=== PATIENT | male | born 1960 | race American Indian/Alaskan Native ===

== ENCOUNTER 2016-05-13 19:17 | Inpatient (IN) | payer MEDICARE ==
--- NOTE | 2016-05-13 20:12 | Emergency Department Report ---
Chief Complaint: Weakness Stated Complaint: GENERAL WEAKNESS Time Seen by Provider: 05/13/16 19:56 - HPI History of Present Illness: 55-year-old male presents today with weakness, diaphoresis, shaking, urinary symptoms, urinary incontinence. states patient received his Risperdal shot yesterday and the symptoms started post medication. Patient had similar symptoms post his last Risperdal shot and was seen here on April 26. Patient was diagnosed with a UTI and finished antibiotics with symptom resolution. Also complaining of lower abdominal pain. - ROS Review of Systems: Per HPI - Exam Vital Signs: Vital Signs 05/13/16 19:48 Temperature 97.5 F L Pulse Rate 130 H Respiratory 18 Rate Blood Pressure 131/97 O2 Sat by Pulse 100 Oximetry Physical Exam: General: 55-year-old male in no acute distress. CV: Tachycardic. Regular rhythm. Lungs: Clear to auscultation bilaterally. Abdomen: Tenderness to palpation in suprapubic region. No guarding or rebound tenderness. Negative for CVA tenderness bilaterally. MSE screening note: Focused history and physical exam performed. Due to findings the following was ordered: ED Disposition for MSE Condition: Stable
[2016-05-13 20:40] LABS: Hemoglobin 14.1 gm/dl (11.8-15.2); Mean Corpuscular HGB Conc 33 % (32-34); Mean Corpuscular Hemoglobin 29 pg (28-32); Mean Corpuscular Volume 89 fl (84-94); Platelet Count 319 K/mm3 (140-440); Red Blood Count 4.84 M/mm3 (3.65-5.03); Red Cell Distribution Width 14.1 % (13.2-15.2)
[2016-05-13 20:50] LABS: BUN/Creatinine Ratio 8.94; Calcium 9.7 mg/dL (8.4-10.2); Chloride 97.1 mmol/L (98-107); Potassium 5.2 mmol/L (3.6-5.0)
[2016-05-13 21:26] LABS: Basophils % (Manual) 0 % (0.0-1.8); Blastocytes % (Manual) 0 %; Eosinophils % (Manual) 0 % (0.0-4.3)
[2016-05-13 21:27] LABS: Anisocytosis 1+; Diff Status Complete; Poikilocytosis Few
[2016-05-13 21:42] LABS: Bacteria,Urine 3+ /HPF (Negative); Bilirubin,Urine NEG (Negative); Blood,Urine MOD (Negative); Ketones,Urine NEG (Negative); Leukocyte Esterase,Urine MOD (Negative); Mucus,Urine FEW /HPF; Nitrite,Urine NEG (Negative)
[2016-05-14] MEDS ORDERED: TYLENOL PO ONE (01:58)
[2016-05-14] MEDS ORDERED: ROCEPHIN/NS 1 GM/50 ML 50 ML IV ONE (04:03)
--- NOTE | 2016-05-14 04:06 | Emergency Department Report ---
ED General Adult HPI - General Chief complaint: Weakness Stated complaint: GENERAL WEAKNESS Time Seen by Provider: 05/13/16 19:56 Source: patient, family, RN notes reviewed, old records reviewed Mode of arrival: Wheelchair Limitations: Physical Limitation - History of Present Illness Initial comments: This is a 55-year-old male, previously unknown to me. Has a past medical history of psychiatric disease, and diabetes. On Wednesday, patient apparently received a shot of Risperdal. Since then he has not been feeling well. He complains of generalized weakness. He complains of low back pain and suprapubic abdominal pain. Symptoms are constant, and have no exacerbating or relieving factors. Apparently was recently diagnosed with a urinary tract infection. Patient denies headache, neck pain, chest pain, short of breath, and diarrhea. He reports urinary frequency and some diarrhea, and he reports global weakness. His reports nausea and vomiting. He denies incontinence. He denies saddle anesthesia. -: Gradual Severity scale (0 -10): 8 Consistency: intermittent Improves with: none Worsens with: none Associated Symptoms: confusion, diaphoresis, loss of appetite, nausea/vomiting, weakness - Related Data Home Medications Medication Instructions Recorded Confirmed Last Taken Aspirin [Adult Low Dose Aspirin EC] 81 mg PO DAILY 08/29/15 05/14/16 1 Day Ago 81 Clindamycin Phosphate [Cleocin T 60 ml TP DAILY 08/29/15 05/14/16 1 Day Ago 1% TOPICAL LOTION] 60 Cyclobenzaprine [Flexeril 10 MG 10 mg PO TID PRN 08/29/15 05/14/16 1 Day Ago TAB] 10 Metformin HCl [Glucophage] 500 mg PO BID 08/29/15 05/14/16 1 Day Ago 500 Mirtazapine [Remeron] 45 mg PO DAILY 08/29/15 05/14/16 1 Day Ago 45 Quetiapine Fumarate [QUEtiapine 300 mg PO QDAY 08/29/15 05/14/16 1 Day Ago Fumarate] 300 clonazePAM [Klonopin] 1 mg PO BID 08/29/15 05/14/16 1 Day Ago 1 risperiDONE [RisperDAL] 2 mg PO DAILY 08/29/15 05/14/16 1 Day Ago 4 Previous Rx's Medication Instructions Recorded Last Taken Type Doxycycline [Vibramycin CAP] 100 mg PO Q12HR #20 capsule 04/26/16 1 Day Ago Rx 100 Allergies Allergy/AdvReac Type Severity Reaction Status Date / Time bee venom (honey bee) Allergy Anaphylaxis Verified 08/28/15 16:23 lisinopril Allergy Anaphylaxis Verified 08/29/15 11:22 ED Review of Systems ROS: Stated complaint: GENERAL WEAKNESS Other details as noted in HPI Constitutional: diaphoresis, malaise, weakness Eyes: denies: eye discharge ENT: denies: epistaxis Respiratory: see HPI Cardiovascular: as per HPI Endocrine: see HPI Gastrointestinal: as per HPI Genitourinary: dysuria. denies: testicular pain Musculoskeletal: back pain Skin: denies: lesions Neurological: weakness Psychiatric: denies: anxiety ED Past Medical Hx - Past Medical History Hx Hypertension: Yes (2YRS) Hx Diabetes: Yes (2YRS) Hx COPD: Yes (2YRS) - Surgical History Hx Breast Surgery: Yes (RITA REMOVAL OF FLUID) - Medications Home Medications: Home Medications Medication Instructions Recorded Confirmed Last Taken Type Aspirin [Adult Low Dose Aspirin EC] 81 mg PO DAILY 08/29/15 05/14/16 1 Day Ago History 81 Clindamycin Phosphate [Cleocin T 60 ml TP DAILY 08/29/15 05/14/16 1 Day Ago History 1% TOPICAL LOTION] 60 Cyclobenzaprine [Flexeril 10 MG 10 mg PO TID PRN 08/29/15 05/14/16 1 Day Ago History TAB] 10 Metformin HCl [Glucophage] 500 mg PO BID 08/29/15 05/14/16 1 Day Ago History 500 Mirtazapine [Remeron] 45 mg PO DAILY 08/29/15 05/14/16 1 Day Ago History 45 Quetiapine Fumarate [QUEtiapine 300 mg PO QDAY 08/29/15 05/14/16 1 Day Ago History Fumarate] 300 clonazePAM [Klonopin] 1 mg PO BID 08/29/15 05/14/16 1 Day Ago History 1 risperiDONE [RisperDAL] 2 mg PO DAILY 08/29/15 05/14/16 1 Day Ago History 4 Doxycycline [Vibramycin CAP] 100 mg PO Q12HR #20 capsule 04/26/16 05/14/16 1 Day Ago Rx 100 ED Physical Exam - General Limitations: Physical Limitation General appearance: alert, in no apparent distress - Head Head exam: Present: atraumatic, normocephalic - Eye Eye exam: Present: normal appearance, EOMI. Absent: nystagmus - ENT ENT exam: Present: mucous membranes dry - Neck Neck exam: Present: normal inspection, full ROM. Absent: tenderness, meningismus - Respiratory Respiratory exam: Present: normal lung sounds bilaterally. Absent: respiratory distress, wheezes, rales, rhonchi, stridor, chest wall tenderness - Cardiovascular Cardiovascular Exam: Present: normal rhythm, tachycardia, normal heart sounds. Absent: bradycardia, irregular rhythm, systolic murmur, diastolic murmur, rubs, gallop - GI/Abdominal GI/Abdominal exam: Present: soft, normal bowel sounds. Absent: distended, tenderness, guarding, rebound, rigid, pulsatile mass - Rectal Rectal exam: Present: deferred - Extremities Exam Extremities exam: Present: normal inspection, full ROM, normal capillary refill , other (the compartments are soft. There is no clonus. Downgoing plantar reflexes.). Absent: tenderness, pedal edema, joint swelling, calf tenderness - Back Exam Back exam: Present: normal inspection, full ROM. Absent: tenderness, CVA tenderness (R), CVA tenderness (L), muscle spasm, paraspinal tenderness, vertebral tenderness - Neurological Exam Neurological exam: Present: alert, oriented X3, other (Extraocular movements intact. Tongue midline. No facial droop. Facial sensation intact to light touch in the V1, V2, V3 distribution bilaterally. 5 and 5 strength in 4 extremities.. Sensation is intact to light touch in 4 extremities.). Absent: motor sensory deficit - Psychiatric Psychiatric exam: Present: normal affect, normal mood - Skin Skin exam: Present: warm, dry, intact, normal color. Absent: rash ED Course Vital Signs 05/13/16 05/14/16 05/14/16 19:48 01:47 04:09 Temperature 97.5 F L 101.1 F H 99.3 F Pulse Rate 130 H 146 H 116 H Pulse Rate [ Left] Respiratory 18 26 H 18 Rate Blood Pressure 131/97 Blood Pressure [Left Arm] Blood Pressure 103/69 109/78 [Right] O2 Sat by Pulse 100 97 98 Oximetry 05/14/16 05/14/16 05/14/16 04:10 06:02 07:40 Temperature 100.9 F H Pulse Rate 112 H 123 H Pulse Rate [ Left] Respiratory 18 18 19 Rate Blood Pressure Blood Pressure [Left Arm] Blood Pressure 132/72 136/80 [Right] O2 Sat by Pulse 97 96 Oximetry 05/14/16 05/14/16 05/14/16 07:41 09:09 09:31 Temperature Pulse Rate 109 H Pulse Rate [ Left] Respiratory 19 17 21 Rate Blood Pressure 114/74 Blood Pressure [Left Arm] Blood Pressure [Right] O2 Sat by Pulse 99 98 Oximetry 05/14/16 05/14/16 05/14/16 10:00 10:15 10:31 Temperature Pulse Rate 107 H 104 H 107 H Pulse Rate [ Left] Respiratory 21 20 20 Rate Blood Pressure 116/73 116/73 116/73 Blood Pressure [Left Arm] Blood Pressure [Right] O2 Sat by Pulse 98 96 Oximetry 05/14/16 05/14/16 05/14/16 11:01 11:10 11:31 Temperature 97.7 F Pulse Rate 110 H 114 H Pulse Rate [ 101 H Left] Respiratory 12 20 26 H Rate Blood Pressure 132/75 132/75 Blood Pressure 142/91 [Left Arm] Blood Pressure [Right] O2 Sat by Pulse 97 94 98 Oximetry 05/14/16 05/14/16 05/14/16 12:00 12:45 12:59 Temperature Pulse Rate 116 H 112 H 120 H Pulse Rate [ Left] Respiratory 23 18 Rate Blood Pressure 129/83 132/75 132/75 Blood Pressure [Left Arm] Blood Pressure [Right] O2 Sat by Pulse 96 97 Oximetry 05/14/16 05/14/16 05/14/16 13:00 13:31 14:00 Temperature Pulse Rate 119 H 122 H 122 H Pulse Rate [ Left] Respiratory 25 H 25 H 15 Rate Blood Pressure 124/77 129/83 114/64 Blood Pressure [Left Arm] Blood Pressure [Right] O2 Sat by Pulse 97 98 98 Oximetry 05/14/16 05/14/16 05/14/16 14:31 15:00 15:03 Temperature Pulse Rate 113 H 114 H 114 H Pulse Rate [ Left] Respiratory 22 12 23 Rate Blood Pressure 114/64 127/77 127/77 Blood Pressure [Left Arm] Blood Pressure [Right] O2 Sat by Pulse 97 97 98 Oximetry 05/14/16 05/14/16 05/14/16 15:31 16:00 16:16 Temperature 102.3 F H Pulse Rate 109 H 114 H Pulse Rate [ Left] Respiratory 22 17 Rate Blood Pressure 127/77 131/80 Blood Pressure [Left Arm] Blood Pressure [Right] O2 Sat by Pulse 96 97 Oximetry - Reevaluation(s) Reevaluation #1: 05/14/16 05:04 Differential diagnosis: Pneumonia, pyelonephritis, prerenal azotemia, dehydration assessment and plan: 55-year-old male with tachycardia, fever, leukocytosis, generalized weakness, nausea and vomiting. Most likely pyelonephritis. Laboratory studies suggest vasomotor nephropathy. 2 L of IV fluids ordered. Antibiotics, blood cultures, urine cultures ordered. Chest x-ray negative. On my exam, the patient is alert and oriented 3, with a GCS of 15. There is no neck pain or neck stiffness. He is not altered on my exam. He appears to be appropriate. May have a component of fluctuating delirium as per history from his family, but he is not acutely altered at this point in time. Lower extremity sensation is intact to light touch and pinprick, proprioception is intact, with no midline lumbar spine tenderness. Therefore I think epidural abscess is unlikely. Case is discussed with the Hospital physician, Dr. Nick, who accepted the patient to his service. Reevaluation #2: 05/14/16 05:39 CAT scan demonstrates left-sided stone which is nonobstructing. This facility has urology systems protection technician as of 7:00 in the morning. I will defer to the inpatient team to contact urology. Flomax is ordered. ED Medical Decision Making - Lab Data Result diagrams: 05/14/16 08:04 05/13/16 20:19 Vital Signs 05/13/16 05/14/16 05/14/16 19:48 01:47 04:09 Temperature 97.5 F L 101.1 F H 99.3 F Pulse Rate 130 H 146 H 116 H Respiratory 18 26 H 18 Rate Blood Pressure 131/97 Blood Pressure 103/69 109/78 [Right] O2 Sat by Pulse 100 97 98 Oximetry 05/14/16 04:10 Temperature Pulse Rate Respiratory 18 Rate Blood Pressure Blood Pressure [Right] O2 Sat by Pulse Oximetry Labs 05/13/16 05/13/16 05/13/16 20:19 20:19 20:19 WBC 21.0 H RBC 4.84 Hgb 14.1 Hct 43.0 MCV 89 MCH 29 MCHC 33 RDW 14.1 Plt Count 319 Add Manual Diff Complete Total Counted 100 Seg Neuts % (Manual) 86.0 H Band Neutrophils % 0 Lymphocytes % (Manual) 9.0 L Reactive Lymphs % (Man) 0 Monocytes % (Manual) 5.0 Eosinophils % (Manual) 0 Basophils % (Manual) 0 Metamyelocytes % 0 Myelocytes % 0 Promyelocytes % 0 Blast Cells % 0 Nucleated RBC % Not Reportable Seg Neutrophils # Man 18.1 H Band Neutrophils # 0.0 Lymphocytes # (Manual) 1.9 Abs React Lymphs (Man) 0.0 Monocytes # (Manual) 1.1 H Eosinophils # (Manual) 0.0 Basophils # (Manual) 0.0 Metamyelocytes # 0.0 Myelocytes # 0.0 Promyelocytes # 0.0 Blast Cells # 0.0 WBC Morphology Not Reportable Hypersegmented Neuts Not Reportable Hyposegmented Neuts Not Reportable Hypogranular Neuts Not Reportable Smudge Cells Not Reportable Toxic Granulation Not Reportable Toxic Vacuolation Not Reportable Dohle Bodies Not Reportable Pelger-Huet Anomaly Not Reportable Stacia Rods Not Reportable Platelet Estimate Appears normal Clumped Platelets Not Reportable Plt Clumps, EDTA Not Reportable Large Platelets Not Reportable Giant Platelets Not Reportable Platelet Satelliting Not Reportable Plt Morphology Comment Not Reportable RBC Morphology Not Reportable Dimorphic RBCs Not Reportable Polychromasia Not Reportable Hypochromasia Not Reportable Poikilocytosis Few Anisocytosis 1+ Microcytosis Not Reportable Macrocytosis Not Reportable Spherocytes Not Reportable Pappenheimer Bodies Not Reportable Sickle Cells Not Reportable Target Cells Not Reportable Tear Drop Cells Not Reportable Ovalocytes Not Reportable Helmet Cells Not Reportable [place] Bodies Not Reportable [place] Rings Not Reportable [place] Cells Not Reportable Bite Cells Not Reportable Crenated Cell Not Reportable Elliptocytes Not Reportable Acanthocytes (Spur) Not Reportable Rouleaux Not Reportable Hemoglobin C Crystals Not Reportable Schistocytes Not Reportable Malaria parasites Not Reportable Doe Bodies Not Reportable Hem Pathologist Commnt No Sodium 138 Potassium 5.2 H Chloride 97.1 L Carbon Dioxide 22 Anion Gap 24 BUN 17 Creatinine 1.9 H Estimated GFR 45 BUN/Creatinine Ratio 8.94 Glucose 155 H Lactic Acid Calcium 9.7 Magnesium Total Creatine Kinase Troponin T Amylase 27 Lipase 9 L Urine Color Urine Turbidity Urine pH Ur Specific [place] Urine Protein Urine Glucose (UA) Urine Ketones Urine Blood Urine Nitrite Urine Bilirubin Urine Urobilinogen Ur Leukocyte Esterase Urine WBC (Auto) Urine RBC (Auto) U Epithel Cells (Auto) Urine Bacteria (Auto) Hyaline Casts Urine Mucus 05/13/16 05/14/16 05/14/16 21:20 04:23 04:23 WBC RBC Hgb Hct MCV MCH MCHC RDW Plt Count Add Manual Diff Total Counted Seg Neuts % (Manual) Band Neutrophils % Lymphocytes % (Manual) Reactive Lymphs % (Man) Monocytes % (Manual) Eosinophils % (Manual) Basophils % (Manual) Metamyelocytes % Myelocytes % Promyelocytes % Blast Cells % Nucleated RBC % Seg Neutrophils # Man Band Neutrophils # Lymphocytes # (Manual) Abs React Lymphs (Man) Monocytes # (Manual) Eosinophils # (Manual) Basophils # (Manual) Metamyelocytes # Myelocytes # Promyelocytes # Blast Cells # WBC Morphology Hypersegmented Neuts Hyposegmented Neuts Hypogranular Neuts Smudge Cells Toxic Granulation Toxic Vacuolation Dohle Bodies Pelger-Huet Anomaly Stacia Rods Platelet Estimate Clumped Platelets Plt Clumps, EDTA Large Platelets Giant Platelets Platelet Satelliting Plt Morphology Comment RBC Morphology Dimorphic RBCs Polychromasia Hypochromasia Poikilocytosis Anisocytosis Microcytosis Macrocytosis Spherocytes Pappenheimer Bodies Sickle Cells Target Cells Tear Drop Cells Ovalocytes Helmet Cells [place] Bodies [place] Cells Bite Cells Crenated Cell Elliptocytes Acanthocytes (Spur) Rouleaux Hemoglobin C Crystals Schistocytes Malaria parasites Doe Bodies Hem Pathologist Commnt Sodium Potassium Chloride Carbon Dioxide Anion Gap BUN Creatinine Estimated GFR BUN/Creatinine Ratio Glucose Lactic Acid Calcium Magnesium Total Creatine Kinase 78 Troponin T < 0.010 Amylase Lipase Urine Color Lina Urine Turbidity Slightly-cloudy Urine pH 5.0 Ur Specific [place] 1.023 Urine Protein 100 mg/dl Urine Glucose (UA) Neg Urine Ketones Neg Urine Blood Mod Urine Nitrite Neg Urine Bilirubin Neg Urine Urobilinogen 4.0 Ur Leukocyte Esterase Mod Urine WBC (Auto) 32.0 H Urine RBC (Auto) 8.0 U Epithel Cells (Auto) < 1.0 Urine Bacteria (Auto) 3+ Hyaline Casts 1 Urine Mucus Few 05/14/16 05/14/16 04:23 04:23 WBC RBC Hgb Hct MCV MCH MCHC RDW Plt Count Add Manual Diff Total Counted Seg Neuts % (Manual) Band Neutrophils % Lymphocytes % (Manual) Reactive Lymphs % (Man) Monocytes % (Manual) Eosinophils % (Manual) Basophils % (Manual) Metamyelocytes % Myelocytes % Promyelocytes % Blast Cells % Nucleated RBC % Seg Neutrophils # Man Band Neutrophils # Lymphocytes # (Manual) Abs React Lymphs (Man) Monocytes # (Manual) Eosinophils # (Manual) Basophils # (Manual) Metamyelocytes # Myelocytes # Promyelocytes # Blast Cells # WBC Morphology Hypersegmented Neuts Hyposegmented Neuts Hypogranular Neuts Smudge Cells Toxic Granulation Toxic Vacuolation Dohle Bodies Pelger-Huet Anomaly Stacia Rods Platelet Estimate Clumped Platelets Plt Clumps, EDTA Large Platelets Giant Platelets Platelet Satelliting Plt Morphology Comment RBC Morphology Dimorphic RBCs Polychromasia Hypochromasia Poikilocytosis Anisocytosis Microcytosis Macrocytosis Spherocytes Pappenheimer Bodies Sickle Cells Target Cells Tear Drop Cells Ovalocytes Helmet Cells [place] Bodies [place] Rings [place] Cells Bite Cells Crenated Cell Elliptocytes Acanthocytes (Spur) Rouleaux Hemoglobin C Crystals Schistocytes Malaria parasites Doe Bodies Hem Pathologist Commnt Sodium Potassium Chloride Carbon Dioxide Anion Gap BUN Creatinine Estimated GFR BUN/Creatinine Ratio Glucose Lactic Acid 1.4 Calcium Magnesium 2.1 Total Creatine Kinase Troponin T Amylase Lipase Urine Color Urine Turbidity Urine pH Ur Specific [place] Urine Protein Urine Glucose (UA) Urine Ketones Urine Blood Urine Nitrite Urine Bilirubin Urine Urobilinogen Ur Leukocyte Esterase Urine WBC (Auto) Urine RBC (Auto) U Epithel Cells (Auto) Urine Bacteria (Auto) Hyaline Casts Urine Mucus - EKG Data 05/14/16 05:39 Limited by motion artifact. Limited by motion artifact. Sinus tachycardia, 111 bpm, normal intervals, normal axis. Not consistent with STEMI. - Radiology Data Radiology results: report reviewed, image reviewed interpreted by me: Chest x-ray demonstrates chronic findings, no acute disease. Noncontrast CAT scan of the head is negative for acute disease. Noncontrast CAT scan of the abdomen and pelvis demonstrates advanced atrophy and fatty replacement of the pancreas. There is a 1 mm stone at the left ureterovesical junction, with mild left hydronephrosis and hydroureter. There is a 2 cm mass at the apex of the left kidney. Malignancy cannot be excluded. Likely hemorrhagic cysts noted on the right kidney. Critical care attestation.: If time is entered above; I have spent that time in minutes in the direct care of this critically ill patient, excluding procedure time. ED Disposition Clinical Impression: Sepsis, Renal insufficiency Disposition: OP ADMITTED IP TO THIS HOSP Is pt being admited?: Yes Condition: Good
[2016-05-14] MEDS ORDERED: DULCOLAX PR PRN (04:09)
[2016-05-14] MEDS ORDERED: ZOFRAN IV PRN (04:09)
[2016-05-14] MEDS ORDERED: PROVENTIL IH PRN (04:09)
[2016-05-14] MEDS ORDERED: TYLENOL PO PRN (04:09)
[2016-05-14] MEDS ORDERED: MILK OF MAGNESIA PO PRN (04:09)
--- NOTE | 2016-05-14 04:09 | History and Physical Report ---
History of Present Illness Chief complaint: I feel sick History of present illness: 55 YO Male with HTN,DM, COPD presents to ED for evaluation. Pt states that he has been experiencing pain in his lower back and suprapubic region for the past 3 days. Pain in 5/10, constant, and associated with nausea and vomiting. Pt acknowledges subjective fever, but denies CP, Palpitation, syncope, difficulty breathing, cough, recent ill contacts, or foreign travel. Past History Past Medical History: COPD, diabetes, hypertension Past Surgical History: Other (breast surgery) Social history: , lives with family. denies: smoking, alcohol abuse, prescription drug abuse Family history: hypertension Medications and Allergies Allergies Allergy/AdvReac Type Severity Reaction Status Date / Time bee venom (honey bee) Allergy Anaphylaxis Verified 08/28/15 16:23 lisinopril Allergy Anaphylaxis Verified 08/29/15 11:22 Home Medications Medication Instructions Recorded Confirmed Last Taken Type Aspirin [Adult Low Dose Aspirin EC] 81 mg PO DAILY 08/29/15 05/14/16 1 Day Ago History 81 Clindamycin Phosphate [Cleocin T 60 ml TP DAILY 08/29/15 05/14/16 1 Day Ago History 1% TOPICAL LOTION] 60 Cyclobenzaprine [Flexeril 10 MG 10 mg PO TID PRN 08/29/15 05/14/16 1 Day Ago History TAB] 10 Metformin HCl [Glucophage] 500 mg PO BID 08/29/15 05/14/16 1 Day Ago History 500 Mirtazapine [Remeron] 45 mg PO DAILY 08/29/15 05/14/16 1 Day Ago History 45 Quetiapine Fumarate [QUEtiapine 300 mg PO QDAY 08/29/15 05/14/16 1 Day Ago History Fumarate] 300 clonazePAM [Klonopin] 1 mg PO BID 08/29/15 05/14/16 1 Day Ago History 1 risperiDONE [RisperDAL] 2 mg PO DAILY 08/29/15 05/14/16 1 Day Ago History 4 Doxycycline [Vibramycin CAP] 100 mg PO Q12HR #20 capsule 04/26/16 05/14/16 1 Day Ago Rx 100 Active Meds: Active Medications Ceftriaxone Sodium (Rocephin/Ns 1 Gm/50 Ml) 50 mls @ 100 mls/hr IV ONCE ONE Stop: 05/14/16 04:32 Sodium Chloride (Nacl 0.9% 500 Ml) 2,000 ml IV NOW DOE Review of Systems All systems: negative Genitourinary Male: flank pain Exam - Constitutional Vitals: Temp Pulse Resp BP Pulse Ox 101.1 F H 146 H 26 H 103/69 97 05/14/16 01:47 05/14/16 01:47 05/14/16 01:47 05/14/16 01:47 05/14/16 01:47 General appearance: Present: mild distress - EENT Eyes: Present: PERRL ENT: hearing intact, clear oral mucosa - Neck Neck: Present: supple, normal ROM - Respiratory Respiratory effort: normal Respiratory: bilateral: CTA - Cardiovascular Heart Sounds: Present: S1 & S2. Absent: rub, click - Extremities Extremities: pulses symmetrical, No edema Peripheral Pulses: within normal limits - Abdominal General gastrointestinal: Present: soft, non-tender, non-distended, normal bowel sounds Male genitourinary: Present: normal - Integumentary Integumentary: Present: clear, warm, dry - Musculoskeletal Musculoskeletal: gait normal, strength equal bilaterally - Psychiatric Psychiatric: appropriate mood/affect, intact judgment & insight - Neurologic Neurologic: CNII-XII intact, moves all extremities Results - Labs CBC & Chem 7: 05/13/16 20:19 05/13/16 20:19 Labs: Abnormal lab results 05/13/16 05/13/16 05/13/16 Range/Units 20:19 20:19 21:20 WBC 21.0 H (4.5-11.0) K/mm3 Seg Neuts % (Manual) 86.0 H (40.0-70.0) % Lymphocytes % (Manual) 9.0 L (13.4-35.0) % Seg Neutrophils # Man 18.1 H (1.8-7.7) K/mm3 Monocytes # (Manual) 1.1 H (0.0-0.8) K/mm3 Potassium 5.2 H (3.6-5.0) mmol/L Chloride 97.1 L (98-107) mmol/L Creatinine 1.9 H (0.8-1.5) mg/dL Glucose 155 H (75-100) mg/dL Lipase 9 L (13-60) units/L Urine WBC (Auto) 32.0 H (0.0-6.0) /HPF Assessment and Plan - Patient Problems (1) Sepsis Current Visit: Yes Status: Acute Plan to address problem: Sepsis protocol: IV abx, IVF, supportive care, (2) Urinary (tract) obstruction Current Visit: Yes Status: Acute Plan to address problem: Urology consulted in ED, Pending evaluation, continue to treat sepsis. (3) Diabetes Current Visit: Yes Status: Acute Plan to address problem: ADA diet, insulin, accu check (4) HTN (hypertension) Current Visit: Yes Status: Acute Plan to address problem: monitor bp q shift, (5) DVT prophylaxis Current Visit: Yes Status: Acute
[2016-05-14] MEDS ORDERED: NACL 0.9% 1000 ML 1,000 ML ONE (04:12)
[2016-05-14] MEDS ORDERED: NACL 0.9% 1000 ML IV ONE (05:00)
--- NOTE | 2016-05-14 05:15 | Cat Scan Report ---
FINAL REPORT PROCEDURE: CT HEAD/BRAIN WO CON TECHNIQUE: Computerized tomography of the head was performed without contrast material. HISTORY: deierum COMPARISON: No prior studies are available for comparison. FINDINGS: Skull and scalp: Normal. Paranasal sinuses: There fluid in the sphenoid sinus. The paranasal sinuses are otherwise clear.. Ventricles and subarachnoid spaces: Normal. Cerebrum: No evidence of hemorrhage, acute infarction or mass . Cerebellum and brainstem: No evidence of hemorrhage, acute infarction or mass. Vasculature: Normal. Comments: None. IMPRESSION: There is no intracranial abnormality. There is sphenoid sinusitis.
--- NOTE | 2016-05-14 05:34 | Cat Scan Report ---
FINAL REPORT PROCEDURE: CT ABDOMEN PELVIS WO CON TECHNIQUE: Computerized axial tomography of the abdomen and pelvis was performed without intravenous contrast. This study is performed without intravascular contrast material and its sensitivity for abdominal and pelvic pathology, including neoplasms, inflammation, abscess, free fluid, thrombosis, arterial dissection and infarction, is reduced compared with a contrast enhanced study. HISTORY: abd pain fever hematuria COMPARISON: No prior studies are available for comparison. FINDINGS: Visualized lower thorax: There are cystic changes of the lungs at the lung bases. There are no infiltrates, effusions or pneumothoraces.. Liver: Normal size and attenuation. Spleen: Normal size and attenuation. Gallbladder and biliary system: Normal. Pancreas: There is advanced atrophy and fatty replacement of the pancreas.. Adrenals: Normal. Kidneys: There is a 1 millimeter stone at the left ureterovesical junction. There is mild left hydronephrosis and hydroureter. There is a 2 centimeter mass at the apex of the left kidney. Malignancy cannot be excluded. MRI is suggested. There is a dense cortical mass in the midpole of the right kidney measuring 1 centimeter. This is most likely a hemorrhagic cyst.. GI tract: There is no bowel obstruction, colitis or enteritis. The appendix is normal.. Lymph nodes and mesentery: There are borderline prominent retroperitoneal lymph nodes which are nonspecific.. Vasculature: Normal. Bladder: Normal. Reproductive organs: Normal. Peritoneum: There is no ascites or free air abscess or adenopathy.. Musculoskeletal structures: No significant abnormality. IMPRESSION: There is advanced atrophy and fatty replacement of the pancreas.. There is a 1 millimeter stone at the left ureterovesical junction. There is mild left hydronephrosis and hydroureter. There is a 2 centimeter mass at the apex of the left kidney. Malignancy cannot be excluded. MRI is suggested. There is a dense cortical mass in the midpole of the right kidney measuring 1 centimeter. This is most likely a hemorrhagic cyst.. There is no bowel obstruction, colitis or enteritis. The appendix is normal.. There are borderline prominent retroperitoneal lymph nodes which are nonspecific.. There is no ascites or free air abscess or adenopathy.. There are cystic changes of the lungs at the lung bases. There are no infiltrates, effusions or pneumothoraces.. .
[2016-05-14] MEDS ORDERED: FLOMAX PO STA (05:40)
[2016-05-14] MEDS: TYLENOL PO PRN ×2 (07:41→16:18)
--- NOTE | 2016-05-14 08:14 | XRay Report ---
Portable chest: There is a pulmonary bleb overlying the right paratracheal region. The lungs otherwise appear generally clear and the mediastinal contour is unremarkable. I have no prior study for comparison. Impression: Pulmonary bleb. No acute findings identified.
[2016-05-14 08:15] LABS: Basophils % (Auto) 0.4 % (0.0-1.8); Hematocrit 36.6 % (35.5-45.6); Hemoglobin 12.1 gm/dl (11.8-15.2); Mean Corpuscular HGB Conc 33 % (32-34); Mean Corpuscular Hemoglobin 29 pg (28-32); Mean Corpuscular Volume 87 fl (84-94); Platelet Count 253 K/mm3 (140-440); Red Blood Count 4.19 M/mm3 (3.65-5.03); Red Cell Distribution Width 13.9 % (13.2-15.2); White Blood Count 19.5 K/mm3 (4.5-11.0)
[2016-05-14] MEDS: NACL 0.45% 1000 ML 1,000 ML IV SCH ×2 (08:20→23:46)
--- NOTE | 2016-05-14 09:03 | Admit Criteria Form ---
Admission Criteria Documentation: SEVERE SEPSIS Clinical Indications for Admission to Inpatient Care (Place 'X' for any and all applicable criteria): Hospital admission is needed for appropriate care of the patient because of ANY ONE of the following: [X]I. Hemodynamic instability indicated by ANY ONE of the following(1)(2)(3)( 4)(5): [X]a. Vital sign abnormality not readily corrected by appropriate treatment within 12 to 24 hours indicated by ANY ONE of the following: [X]i) Tachycardia that persists despite appropriate treatment []ii) Hypotension that persists despite appropriate treatment []iii) Orthostatic vital sign changes that persist despite appropriate treatment [X]b. Vital sign abnormality that is severe indicated by ANY ONE of the following: [X]i. Inadequate perfusion indicated by ANY ONE of the following: [X]1) Lactic acidosis (greater than 2 mmol/L) []2) New abnormal capillary refill (greater than 3 seconds) []3) Reduced urine output []4) New altered mental status []5) Myocardial Ischemia []ii. Mean arterial pressure [A] less than 60 mm Hg []iii. Mean arterial pressure[A] less than 70 mm Hg after 30 minutes of appropriate treatment (eg, fluid resuscitation) []iv. Sustained heart rate greater than 120 beats per minute in adult []v. IV inotropic or vasopressor medication required to maintain adequate blood pressure or perfusion [ ]II. Systemic or infectious condition causing severe symptoms or findings not responsive to emergency or observation care treatment (as appropriate) indicated by ANY ONE of the following: []a. Cardiac arrhythmias of immediate concern(1)(2)(3) []b. Severe endocrine disorder (eg, thyrotoxicosis, adrenal insufficiency)(4)(5) []c. Seizures (eg, new or recurrent)(6) []d. New-onset end organ failure or dysfunction as indicated by ANY ONE of the following: []i. Acute unexplained hypoxemia (eg, not from lung infection or chronic disease)(7)(8)(9) []ii. Acute renal failure as indicated by new onset of ANY ONE of the following(10)(11)(12)(13)(14): []1) 3-fold rise in serum creatinine from baseline []2) Serum creatinine greater than 4 mg/dL (354 micromoles/L) with acute rise greater than 0.5 mg/dL (44.2 micromoles/L) []3) Reduction of more than 75% in estimated glomerular filtration rate from baseline. []4) Estimated glomerular filtration rate less than 35 mL/min/1.73m2 ( 0.59 mL/sec/1.73m2) in child younger than 18 years. []5) Cessation of urine output indicated by ALL of the following: []A. Adequate volume status []B. Inadequate urine output as indicated by ANY ONE of the following: []a. Urine output less than 0.3 mL/kg/hr for 24 hours []b. Anuria (urine output less than 0.1 mL/kg/hr) for 12 hours []iii. Acute mental status changes(15) []iv. Acute hepatic failure (eg, plasma bilirubin greater than 4 mg/ dL (68 micromoles/L), new INR greater than 2.0)(16)(17) []e. Unmanageable nausea and vomiting(18) []f. New-onset or uncontrolled central diabetes insipidus(19)(20) []g. Clinically significant dehydration(18)(21) []h. Hypoglycemia(22) []i. Acidosis (pH less than 7.35) or alkalosis (pH greater than 7.45)( 22)(23) []j. Toxic drug level that indicates need for specific monitoring or treatment(24)(25) []k. Severe electrolyte abnormalities indicated by ALL of the following( 1)(2)(3): []i. Electrolytes and associated findings are not as expected for patient baseline or acceptable treatment effects. []ii. Severe abnormalities indicated by ANY ONE of the following: []1) Sodium less than 130 mEq/L (mmol/L) (new) []2) Sodium less than 135 mEq/L (mmol/L) with ANY ONE of the following: []A. Uncorrectable (to near normal or chronic baseline) after trial of outpatient and emergency treatment []B. Altered mental status []C. Seizures []D. Severe medical etiology requiring inpatient management (eg , heart failure, hypovolemia) []3) Sodium greater than 155 mEq/L (mmol/L) []4) Sodium greater than 150 mEq/L (mmol/L) with ANY ONE of the following: []A. Uncorrectable (to near normal or chronic baseline) with outpatient and emergency treatment []B. Altered mental status []C. Seizures []D. Severe medical etiology (eg, hypovolemia, diabetes insipidus) []5) Potassium less than 2.5 mEq/L (mmol/L) despite outpatient and emergency treatment []6) Potassium less than 3 mEq/L (mmol/L) with ANY ONE of the following : []A. Weakness []B. Cardiac abnormality (eg, arrhythmia, conduction disturbance ) []C. Cardiac ischemia []D. Ileus []E. Ongoing medical cause requiring inpatient management (eg, acute renal wasting or SIADH) []F. Other severe symptoms []7) Potassium greater than 6.5 mEq/L (mmol/L) []8) Potassium greater than 5 mEq/L (mmol/L) with ANY ONE of the following: []A. Uncorrectable (to near normal or chronic baseline) with outpatient and emergency treatment []B. Severe ECG findings[A] []C. Acute worsening of renal failure (creatinine greater than 2.5 mg/dL (221 micromoles/L) or significant elevation for age and size) []D. Severe weakness []E. Severe medical etiology (eg, hemolysis, infection, drug overdose) []9) Calcium less than 7 mg/dL (1.75 mmol/L) despite outpatient and emergency treatment(5) []10) Calcium less than 8 mg/dL (2 mmol/L) with significant symptoms or findings (eg, altered mental status, muscle spasms, seizures, breathing difficulty, cardiac abnormality (eg, arrhythmia or conduction disturbance))(5) []11) Calcium greater than 14 mg/dL (3.5 mmol/L)(5) []12) Calcium greater than 12 mg/dL (3 mmol/L) with ANY ONE of the following(5): []A. Uncorrectable (to near normal or chronic baseline) with outpatient and emergency treatment []B. Significant dehydration or hypovolemia as indicated by ALL of the following(3)(6)(7): []a. Not resolved with initial treatments []b. Clinically significant dehydration as indicated by ANY ONE of the following: [](1) Vomiting refractory to outpatient treatment (ie, precluding oral rehydration) [](2) Inability to drink [](3) Hypernatremia or other electrolyte abnormality unable to be corrected with outpatient and emergency treatment [](4) Failure to remain hydrated with outpatient therapy [](5) Reduced urine output [](6) Hypotension [](7) Serious cause for dehydration requiring acute hospitalization ( eg, bowel obstruction, increased intracranial pressure, infectious cause) [](8) Child with ANY ONE of the following(8): [](i) Severe abdominal tenderness [](ii) Adequate care not available at home [](iii) Severe dehydration (greater than 9% loss of body weight) []C. Significant symptoms or findings (eg, altered mental status , cardiac abnormality (eg, arrhythmia, conduction disturbance), malignant etiology requiring inpatient treatment) []13) Phosphorus less than 1 mg/dL (0.32 mmol/L) []14) Phosphorus less than 1.5 mg/dL (0.48 mmol/L) with ANY ONE of the following: []A. Patient unresponsive to outpatient and emergency treatment []B. Significant symptoms or findings (eg, weakness, altered mental status, breathing difficulty, seizures, rhabdomyolysis) []15) Phosphorus greater than 10 mg/dL (3.2 mmol/L) []16) Phosphorus greater than 4.5 mg/dL (1.45 mmol/L) (new) with ANY ONE of the following: []A. Severe medical etiology (eg, crush injury, acute renal failure) []B. Associated hypocalcemia with significant findings (eg, neurologic symptoms, altered mental status, muscle spasms, seizures, breathing difficulty, cardiac abnormality (eg, arrhythmia, conduction disturbance)) []16) Magnesium less than 1 mg/dL (0.41 mmol/L) []17) Magnesium less than 1.5 mg/dL (0.62 mmol/L) with ANY ONE of the following: []A. Patient unresponsive to outpatient and emergency treatment []B. Associated hypocalcemia with significant findings (eg, altered mental status, muscle spasms, seizures, breathing difficulty, cardiac abnormality (eg, arrhythmia, conduction disturbance)) []C. Associated hypokalemia (potassium less than 3 mEq/L (mmol/L )) with risk of arrhythmia []18) Magnesium greater than 4 mEq/L (2 mmol/L) []19) Magnesium greater than 2.5 mEq/L (1.25 mmol/L) with significant symptoms or findings (eg, weakness, altered mental status, cardiac abnormality (eg, arrhythmia, conduction disturbance), breathing difficulty, severe medical etiology (eg, renal failure, hypovolemia)) []20) Uric acid greater than 20 mg/dL (1190 micromoles/L)(9) []21) Uric acid greater than 8 mg/dL (476 micromoles/L) with significant symptoms or findings of tumor lysis syndrome (eg, creatinine greater than 1.5 times upper limit of normal, cardiac abnormality (eg , arrhythmia, conduction disturbance), seizure)(9) []III. High fever or other high-risk infection situation as indicated by ANY ONE of the following(26)(27)(28): []a. Outpatient and observation care antimicrobial treatment unavailable, not effective, or not appropriate []b. Documented bacteremia []c. Temperature greater than 104.9 degrees F (40.5 degrees C) (oral) []d. Temperature greater than 103.1 degrees F (39.5 degrees C) (oral) or less than 96.8 degrees F (36 degrees C) (rectal) that does not respond to emergency treatment and observation care []IV. High-risk febrile neutropenia[A] as indicated by ANY ONE of the following(29)(30)(31)(32): []a. Profound neutropenia[B] anticipated to extend for more than 7 days []b. Hemodynamic instability []c. Hypoxemia []d. Tachypnea []e. Altered mental status []f. New-onset abdominal pain []g. New-onset vomiting or diarrhea []h. Oral or gastrointestinal mucositis that interferes with swallowing or causes severe diarrhea []i. Focal infection (eg, cellulitis, pneumonia, central line or catheter infection, perirectal abscess) []j. Renal insufficiency (eg, GFR of less than 30 mL/min/1.73m2 (0.5 mL/sec /1.73m2)). []k. Severe liver dysfunction (transaminase levels greater than 5 times normal) []l. Platelet count less than 50,000/mm3 (50 x109/L)(33) []m. Leukemia or lymphoma induction therapy []n. Leukemia not in complete remission or with evidence of disease progression []o. Bone marrow transplant patient []p. Alemtuzumab being used for therapy []q. [employer] Association for Supportive Care in Cancer (MASCC) Risk Index score of less than 21[C](33)(35). []V. Isolation required (eg, tuberculosis that requires isolation, Ebola infection)[D](36)(37)(38)(39)(40) []. Gangrene that requires treatment beyond emergency or observation level care(41)(42) []VII. Antitoxin administration and ongoing observation required (eg, tetanus, botulism)(43)(44) []. Suspected infection with rapid progression or severe symptoms as indicated by ANY ONE of the following(45): []a. Streptococcal or staphylococcal toxic shock(46) []b. Diphtheria(47) []c. Hantavirus(48) []d. Severe acute respiratory syndrome(8)(49) []e. Anthrax(50) []f. Ebola[D](36)(37)(38) []g. Necrotizing soft tissue infection(41)(42) []h. Plague(50) []i. Other suspected infection that requires care beyond emergency or observation level care []VII. Severe adverse drug or systemic toxin reaction as indicated by ANY ONE of the following(24): []a. Serotonin syndrome(51)(52) []b. Neuroleptic malignant syndrome(51)(52) []c. Cholinergic syndrome with severe symptoms (eg, bronchorrhea, weakness , mental status changes, seizures)(53) []d. Anticholinergic syndrome []e. Sympathetic syndrome with severe symptoms (eg, seizures, mental status changes, cardiac dysrhythmias) []f. Other severe adverse drug or systemic toxin reaction that remains after emergency or observation level care (as appropriate) []VIII. Allergic reaction with severe symptoms (not responsive to emergency or observation care treatment as appropriate), including ANY ONE of the following(54): []a. Airway edema (pharyngeal, epiglottic, or laryngeal edema) []b. Stridor []c. Respiratory failure []d. Bronchospasm []e. Hypotension []IX. Environmental emergency (not responsive to emergency or observation care treatment as appropriate) as indicated by ANY ONE of the following(55)(56): []a. Hyperthermia []b. Heat stroke []c. Heat exhaustion []d. Hypothermia (temperature less than 95 degrees F (35 degrees C) rectal) (57) []e. Electrocution(58) []X. Complications of transplanted organ (ie, not covered elsewhere)[E] indicated by ANY ONE of the following(59): []a. Acute graft rejection (or graft vs. host disease)[F] requiring inpatient management (eg, intravenous immunosuppression)(60)(61)(62)( 63) []b. Acute failure of transplanted organ necessitating inpatient care (eg, cannot be managed in other setting) []c. Infection requiring inpatient management (eg, Hemodynamic instability, need for intravenous antimicrobial treatment)(64)(65) []d. Other complication of transplanted organ requiring inpatient management []XI. Systemic or Infectious Condition condition, symptom, or finding for which emergency and observation care have failed or are not considered appropriate. See General Criteria: Observation Care, General Admission Criteria or Pediatric General Admission Criteria guideline as appropriate. (Contents from SEVERE SEPSIS and SYSTEMIC OR INFECTIOUS CONDITION clinical indications for admission to inpatient care have been integrated in this form) The original [facility] content created by [facility] has been revised. The portions of the content which have been revised are identified through the use of italic text or in bold and [facility] has neither reviewed nor approved the modified material. All other unmodified content is copyright [facility]. Please see references footnoted in the original [facility] edition 2016 Admission Criteria Met: Yes
[2016-05-14] MEDS ORDERED: LEVAQUIN 750MG/150ML 150 ML IV SCH (10:00)
[2016-05-14] MEDS ORDERED: ZOSYN/NS 4.5GM/100ML 100 ML IV SCH (12:00)
[2016-05-14] MEDS: ZOSYN/NS 3.375GM/50ML 50 ML IV SCH ×4 (12:21→23:06)
[2016-05-14] MEDS: REMERON PO SCH (23:09)
[2016-05-15] MEDS: ZOSYN/NS 3.375GM/50ML 50 ML IV SCH ×4 (04:00→22:40)
[2016-05-15] MEDS: RisperDAL PO SCH (09:49)
[2016-05-15] MEDS: TYLENOL PO PRN (10:04)
[2016-05-15] MEDS: LEVAQUIN 750MG/150ML 150 ML IV SCH (13:37)
[2016-05-15] MEDS: NACL 0.45% 1000 ML 1,000 ML IV SCH (16:07)
--- NOTE | 2016-05-15 18:52 | Progress Note ---
Hospitalist Physical - Constitutional Vitals: Temp Pulse Resp BP Pulse Ox 97.7 F 93 H 16 103/72 100 05/15/16 16:30 05/15/16 16:30 05/15/16 16:30 05/15/16 16:30 05/15/16 16:30 General appearance: Present: mild distress Results - Labs CBC & Chem 7: 05/14/16 08:04 05/13/16 20:19 Labs: Laboratory Last Values WBC 19.5 K/mm3 (4.5-11.0) H 05/14/16 08:04 RBC 4.19 M/mm3 (3.65-5.03) 05/14/16 08:04 Hgb 12.1 gm/dl (11.8-15.2) 05/14/16 08:04 Hct 36.6 % (35.5-45.6) D 05/14/16 08:04 MCV 87 fl (84-94) 05/14/16 08:04 MCH 29 pg (28-32) 05/14/16 08:04 MCHC 33 % (32-34) 05/14/16 08:04 RDW 13.9 % (13.2-15.2) 05/14/16 08:04 Plt Count 253 K/mm3 (140-440) 05/14/16 08:04 Lymph % (Auto) 8.1 % (13.4-35.0) L 05/14/16 08:04 [place] % (Auto) 12.1 % (0.0-7.3) H 05/14/16 08:04 Eos % (Auto) 0.0 % (0.0-4.3) 05/14/16 08:04 Baso % (Auto) 0.4 % (0.0-1.8) 05/14/16 08:04 Lymph # 1.6 K/mm3 (1.2-5.4) 05/14/16 08:04 [place] # 2.4 K/mm3 (0.0-0.8) H 05/14/16 08:04 Eos # 0.0 K/mm3 (0.0-0.4) 05/14/16 08:04 Baso # 0.1 K/mm3 (0.0-0.1) 05/14/16 08:04 Add Manual Diff Complete 05/13/16 20:19 Total Counted 100 05/13/16 20:19 Seg Neutrophils % 79.4 % (40.0-70.0) H 05/14/16 08:04 Seg Neuts % (Manual) 86.0 % (40.0-70.0) H 05/13/16 20:19 Band Neutrophils % 0 % 05/13/16 20:19 Lymphocytes % (Manual) 9.0 % (13.4-35.0) L 05/13/16 20:19 Reactive Lymphs % (Man) 0 % 05/13/16 20:19 Monocytes % (Manual) 5.0 % (0.0-7.3) 05/13/16 20:19 Eosinophils % (Manual) 0 % (0.0-4.3) 05/13/16 20:19 Basophils % (Manual) 0 % (0.0-1.8) 05/13/16 20:19 Metamyelocytes % 0 % 05/13/16 20:19 Myelocytes % 0 % 05/13/16 20:19 Promyelocytes % 0 % 05/13/16 20:19 Blast Cells % 0 % 05/13/16 20:19 Nucleated RBC % Not Reportable 05/13/16 20:19 Seg Neutrophils # 15.5 K/mm3 (1.8-7.7) H 05/14/16 08:04 Seg Neutrophils # Man 18.1 K/mm3 (1.8-7.7) H 05/13/16 20:19 Band Neutrophils # 0.0 K/mm3 05/13/16 20:19 Lymphocytes # (Manual) 1.9 K/mm3 (1.2-5.4) 05/13/16 20:19 Abs React Lymphs (Man) 0.0 K/mm3 05/13/16 20:19 Monocytes # (Manual) 1.1 K/mm3 (0.0-0.8) H 05/13/16 20:19 Eosinophils # (Manual) 0.0 K/mm3 (0.0-0.4) 05/13/16 20:19 Basophils # (Manual) 0.0 K/mm3 (0.0-0.1) 05/13/16 20:19 Metamyelocytes # 0.0 K/mm3 05/13/16 20:19 Myelocytes # 0.0 K/mm3 05/13/16 20:19 Promyelocytes # 0.0 K/mm3 05/13/16 20:19 Blast Cells # 0.0 K/mm3 05/13/16 20:19 WBC Morphology Not Reportable 05/13/16 20:19 Hypersegmented Neuts Not Reportable 05/13/16 20:19 Hyposegmented Neuts Not Reportable 05/13/16 20:19 Hypogranular Neuts Not Reportable 05/13/16 20:19 Smudge Cells Not Reportable 05/13/16 20:19 Toxic Granulation Not Reportable 05/13/16 20:19 Toxic Vacuolation Not Reportable 05/13/16 20:19 Dohle Bodies Not Reportable 05/13/16 20:19 Pelger-Huet Anomaly Not Reportable 05/13/16 20:19 Stacia Rods Not Reportable 05/13/16 20:19 Platelet Estimate Appears normal 05/13/16 20:19 Clumped Platelets Not Reportable 05/13/16 20:19 Plt Clumps, EDTA Not Reportable 05/13/16 20:19 Large Platelets Not Reportable 05/13/16 20:19 Giant Platelets Not Reportable 05/13/16 20:19 Platelet Satelliting Not Reportable 05/13/16 20:19 Plt Morphology Comment Not Reportable 05/13/16 20:19 RBC Morphology Not Reportable 05/13/16 20:19 Dimorphic RBCs Not Reportable 05/13/16 20:19 Polychromasia Not Reportable 05/13/16 20:19 Hypochromasia Not Reportable 05/13/16 20:19 Poikilocytosis Few 05/13/16 20:19 Anisocytosis 1+ 05/13/16 20:19 Microcytosis Not Reportable 05/13/16 20:19 Macrocytosis Not Reportable 05/13/16 20:19 Spherocytes Not Reportable 05/13/16 20:19 Pappenheimer Bodies Not Reportable 05/13/16 20:19 Sickle Cells Not Reportable 05/13/16 20:19 Target Cells Not Reportable 05/13/16 20:19 Tear Drop Cells Not Reportable 05/13/16 20:19 Ovalocytes Not Reportable 05/13/16 20:19 Helmet Cells Not Reportable 01/04/17 20:19 Angu[place] Bodies Not Reportable 05/13/16 20:19 Dexter Rings Not Reportable 05/13/16 20:19 Pedro Luis Cells Not Reportable 05/13/16 20:19 Bite Cells Not Reportable 05/13/16 20:19 Crenated Cell Not Reportable 05/13/16 20:19 Elliptocytes Not Reportable 05/13/16 20:19 Acanthocytes (Spur) Not Reportable 05/13/16 20:19 Rouleaux Not Reportable 05/13/16 20:19 Hemoglobin C Crystals Not Reportable 05/13/16 20:19 Schistocytes Not Reportable 05/13/16 20:19 Malaria parasites Not Reportable 05/13/16 20:19 Doe Bodies Not Reportable 05/13/16 20:19 Hem Pathologist Commnt No 05/13/16 20:19 Sodium 138 mmol/L (137-145) 05/13/16 20:19 Potassium 5.2 mmol/L (3.6-5.0) H 05/13/16 20:19 Chloride 97.1 mmol/L (98-107) L 05/13/16 20:19 Carbon Dioxide 22 mmol/L (22-30) 05/13/16 20:19 Anion Gap 24 mmol/L 05/13/16 20:19 BUN 17 mg/dL (9-20) 05/13/16 20:19 Creatinine 1.9 mg/dL (0.8-1.5) H 05/13/16 20:19 Estimated GFR 45 ml/min 05/13/16 20:19 BUN/Creatinine Ratio 8.94 % 05/13/16 20:19 Glucose 155 mg/dL (75-100) H 05/13/16 20:19 POC Glucose 121 (70-105) H 05/15/16 17:11 Lactic Acid 2.2 mmol/L (0.7-2.0) H* 05/14/16 08:04 Calcium 9.7 mg/dL (8.4-10.2) 05/13/16 20:19 Magnesium 2.1 mg/dL (1.7-2.3) 05/14/16 04:23 Total Creatine Kinase 78 units/L (55-170) 05/14/16 04:23 Troponin T < 0.010 ng/mL (0.00-0.029) 05/14/16 04:23 Amylase 27 units/L (27-131) 05/13/16 20:19 Lipase 9 units/L (13-60) L 05/13/16 20:19 Urine Color Lina (Yellow) 05/13/16 21:20 Urine Turbidity Slightly-cloudy (Clear) 05/13/16 21:20 Urine pH 5.0 (5.0-7.0) 05/13/16 21:20 Ur Specific [place] 1.023 (1.003-1.030) 05/13/16 21:20 Urine Protein 100 mg/dl mg/dL (Negative) 05/13/16 21:20 Urine Glucose (UA) Neg mg/dL (Negative) 05/13/16 21:20 Urine Ketones Neg mg/dL (Negative) 05/13/16 21:20 Urine Blood Mod (Negative) 05/13/16 21:20 Urine Nitrite Neg (Negative) 05/13/16 21:20 Urine Bilirubin Neg (Negative) 05/13/16 21:20 Urine Urobilinogen 4.0 mg/dL (<2.0) 05/13/16 21:20 Ur Leukocyte Esterase Mod (Negative) 05/13/16 21:20 Urine WBC (Auto) 32.0 /HPF (0.0-6.0) H 05/13/16 21:20 Urine RBC (Auto) 8.0 /HPF (0.0-6.0) 05/13/16 21:20 U Epithel Cells (Auto) < 1.0 /HPF (0-13.0) 05/13/16 21:20 Urine Bacteria (Auto) 3+ /HPF (Negative) 05/13/16 21:20 Hyaline Casts 1 /LPF 05/13/16 21:20 Urine Mucus Few /HPF 05/13/16 21:20
[2016-05-15] MEDS: REMERON PO SCH (22:40)
[2016-05-16] MEDS: ZOSYN/NS 3.375GM/50ML 50 ML IV SCH ×4 (04:10→21:35)
[2016-05-16] MEDS: TYLENOL PO PRN (05:12)
[2016-05-16] MEDS: RisperDAL PO SCH ×2 (09:20→09:26)
[2016-05-16] MEDS: LEVAQUIN 750MG/150ML 150 ML IV SCH (09:22)
--- NOTE | 2016-05-16 16:40 | Magnetic Resonance Report ---
FINAL REPORT PROCEDURE: MR ABDOMEN WO/W CON TECHNIQUE: Magnetic resonance imaging of the abdomen was performed using standard pulse sequences without contrast material, followed by the IV injection paramagnetic contrast and additional sequences. HISTORY: renal mass COMPARISON: CT exam dated May 14, 2016 FINDINGS: The spleen is normal in size. Adrenal glands are normal in size. No right renal lesion is seen. In the superior pole of the left kidney there is a slightly exophytic 2.3 by 1.3 cm lesion. It has slightly hypointense T2 signal. It has a small focus of increased T1 signal centrally. It has little if any enhancement. 1.3 cm nonenhancing cyst is seen in the mid left kidney laterally. Normal enhancement is seen of the left renal artery and vein. 3 millimeter cyst is suspected in the inferior right hepatic lobe. In the left hepatic lobe there is a 1.3 cm peripherally enhancing lesion that is probably an hemangioma. Gallbladder and pancreas appear normal. There may be mild constipation. IMPRESSION: 2.3 cm lesion in the superior pole of the left kidney has heterogeneous signal but little if any enhancement. It could be a hemorrhagic cyst but malignancy cannot be completely excluded. Followup ultrasound may be useful with ultrasound monitoring to assure stability.
--- NOTE | 2016-05-16 20:15 | Progress Note ---
History Interval history: doing well, no complaints scheduled for [facility] Hospitalist Physical - Constitutional Vitals: Temp Pulse Resp BP Pulse Ox 97.8 F 89 16 110/76 98 05/16/16 15:48 05/16/16 15:48 05/16/16 15:48 05/16/16 15:48 05/16/16 15:48 General appearance: Present: mild distress Results - Labs CBC & Chem 7: 05/14/16 08:04 05/13/16 20:19 Labs: Laboratory Last Values WBC 19.5 K/mm3 (4.5-11.0) H 05/14/16 08:04 RBC 4.19 M/mm3 (3.65-5.03) 05/14/16 08:04 Hgb 12.1 gm/dl (11.8-15.2) 05/14/16 08:04 Hct 36.6 % (35.5-45.6) D 05/14/16 08:04 MCV 87 fl (84-94) 05/14/16 08:04 MCH 29 pg (28-32) 05/14/16 08:04 MCHC 33 % (32-34) 05/14/16 08:04 RDW 13.9 % (13.2-15.2) 05/14/16 08:04 Plt Count 253 K/mm3 (140-440) 05/14/16 08:04 Lymph % (Auto) 8.1 % (13.4-35.0) L 05/14/16 08:04 Esmeralda % (Auto) 12.1 % (0.0-7.3) H 05/14/16 08:04 Eos % (Auto) 0.0 % (0.0-4.3) 05/14/16 08:04 Baso % (Auto) 0.4 % (0.0-1.8) 05/14/16 08:04 Lymph # 1.6 K/mm3 (1.2-5.4) 05/14/16 08:04 Esmeralda # 2.4 K/mm3 (0.0-0.8) H 05/14/16 08:04 Eos # 0.0 K/mm3 (0.0-0.4) 05/14/16 08:04 Baso # 0.1 K/mm3 (0.0-0.1) 05/14/16 08:04 Add Manual Diff Complete 05/13/16 20:19 Total Counted 100 05/13/16 20:19 Seg Neutrophils % 79.4 % (40.0-70.0) H 05/14/16 08:04 Seg Neuts % (Manual) 86.0 % (40.0-70.0) H 05/13/16 20:19 Band Neutrophils % 0 % 05/13/16 20:19 Lymphocytes % (Manual) 9.0 % (13.4-35.0) L 05/13/16 20:19 Reactive Lymphs % (Man) 0 % 05/13/16 20:19 Monocytes % (Manual) 5.0 % (0.0-7.3) 05/13/16 20:19 Eosinophils % (Manual) 0 % (0.0-4.3) 05/13/16 20:19 Basophils % (Manual) 0 % (0.0-1.8) 05/13/16 20:19 Metamyelocytes % 0 % 05/13/16 20:19 Myelocytes % 0 % 05/13/16 20:19 Promyelocytes % 0 % 05/13/16 20:19 Blast Cells % 0 % 05/13/16 20:19 Nucleated RBC % Not Reportable 05/13/16 20:19 Seg Neutrophils # 15.5 K/mm3 (1.8-7.7) H 05/14/16 08:04 Seg Neutrophils # Man 18.1 K/mm3 (1.8-7.7) H 05/13/16 20:19 Band Neutrophils # 0.0 K/mm3 05/13/16 20:19 Lymphocytes # (Manual) 1.9 K/mm3 (1.2-5.4) 05/13/16 20:19 Abs React Lymphs (Man) 0.0 K/mm3 05/13/16 20:19 Monocytes # (Manual) 1.1 K/mm3 (0.0-0.8) H 05/13/16 20:19 Eosinophils # (Manual) 0.0 K/mm3 (0.0-0.4) 05/13/16 20:19 Basophils # (Manual) 0.0 K/mm3 (0.0-0.1) 05/13/16 20:19 Metamyelocytes # 0.0 K/mm3 05/13/16 20:19 Myelocytes # 0.0 K/mm3 05/13/16 20:19 Promyelocytes # 0.0 K/mm3 05/13/16 20:19 Blast Cells # 0.0 K/mm3 05/13/16 20:19 WBC Morphology Not Reportable 05/13/16 20:19 Hypersegmented Neuts Not Reportable 05/13/16 20:19 Hyposegmented Neuts Not Reportable 05/13/16 20:19 Hypogranular Neuts Not Reportable 05/13/16 20:19 Smudge Cells Not Reportable 05/13/16 20:19 Toxic Granulation Not Reportable 05/13/16 20:19 Toxic Vacuolation Not Reportable 05/13/16 20:19 Dohle Bodies Not Reportable 05/13/16 20:19 Pelger-Huet Anomaly Not Reportable 05/13/16 20:19 Stacia Rods Not Reportable 05/13/16 20:19 Platelet Estimate Appears normal 05/13/16 20:19 Clumped Platelets Not Reportable 05/13/16 20:19 Plt Clumps, EDTA Not Reportable 05/13/16 20:19 Large Platelets Not Reportable 05/13/16 20:19 Giant Platelets Not Reportable 05/13/16 20:19 Platelet Satelliting Not Reportable 05/13/16 20:19 Plt Morphology Comment Not Reportable 05/13/16 20:19 RBC Morphology Not Reportable 05/13/16 20:19 Dimorphic RBCs Not Reportable 05/13/16 20:19 Polychromasia Not Reportable 05/13/16 20:19 Hypochromasia Not Reportable 05/13/16 20:19 Poikilocytosis Few 05/13/16 20:19 Anisocytosis 1+ 05/13/16 20:19 Microcytosis Not Reportable 05/13/16 20:19 Macrocytosis Not Reportable 05/13/16 20:19 Spherocytes Not Reportable 05/13/16 20:19 Pappenheimer Bodies Not Reportable 05/13/16 20:19 Sickle Cells Not Reportable 05/13/16 20:19 Target Cells Not Reportable 05/13/16 20:19 Tear Drop Cells Not Reportable 05/13/16 20:19 Ovalocytes Not Reportable 05/13/16 20:19 Helmet Cells Not Reportable 05/13/16 20:19 Anguiano-[place] Bodies Not Reportable 05/13/16 20:19 [place] Rings Not Reportable 05/13/16 20:19 [place] Cells Not Reportable 05/13/16 20:19 Bite Cells Not Reportable 05/13/16 20:19 Crenated Cell Not Reportable 05/13/16 20:19 Elliptocytes Not Reportable 05/13/16 20:19 Acanthocytes (Spur) Not Reportable 05/13/16 20:19 Rouleaux Not Reportable 05/13/16 20:19 Hemoglobin C Crystals Not Reportable 05/13/16 20:19 Schistocytes Not Reportable 05/13/16 20:19 Malaria parasites Not Reportable 05/13/16 20:19 Doe Bodies Not Reportable 05/13/16 20:19 Hem Pathologist Commnt No 05/13/16 20:19 Sodium 138 mmol/L (137-145) 05/13/16 20:19 Potassium 5.2 mmol/L (3.6-5.0) H 05/13/16 20:19 Chloride 97.1 mmol/L (98-107) L 05/13/16 20:19 Carbon Dioxide 22 mmol/L (22-30) 05/13/16 20:19 Anion Gap 24 mmol/L 05/13/16 20:19 BUN 17 mg/dL (9-20) 05/13/16 20:19 Creatinine 1.9 mg/dL (0.8-1.5) H 05/13/16 20:19 Estimated GFR 45 ml/min 05/13/16 20:19 BUN/Creatinine Ratio 8.94 % 05/13/16 20:19 Glucose 155 mg/dL (75-100) H 05/13/16 20:19 POC Glucose 96 (70-105) 05/16/16 17:00 Lactic Acid 2.2 mmol/L (0.7-2.0) H* 05/14/16 08:04 Calcium 9.7 mg/dL (8.4-10.2) 05/13/16 20:19 Magnesium 2.1 mg/dL (1.7-2.3) 05/14/16 04:23 Total Creatine Kinase 78 units/L (55-170) 05/14/16 04:23 Troponin T < 0.010 ng/mL (0.00-0.029) 05/14/16 04:23 Amylase 27 units/L (27-131) 05/13/16 20:19 Lipase 9 units/L (13-60) L 05/13/16 20:19 Urine Color Lina (Yellow) 05/13/16 21:20 Urine Turbidity Slightly-cloudy (Clear) 05/13/16 21:20 Urine pH 5.0 (5.0-7.0) 05/13/16 21:20 Ur Specific [place] 1.023 (1.003-1.030) 05/13/16 21:20 Urine Protein 100 mg/dl mg/dL (Negative) 05/13/16 21:20 Urine Glucose (UA) Neg mg/dL (Negative) 05/13/16 21:20 Urine Ketones Neg mg/dL (Negative) 05/13/16 21:20 Urine Blood Mod (Negative) 05/13/16 21:20 Urine Nitrite Neg (Negative) 05/13/16 21:20 Urine Bilirubin Neg (Negative) 05/13/16 21:20 Urine Urobilinogen 4.0 mg/dL (<2.0) 05/13/16 21:20 Ur Leukocyte Esterase Mod (Negative) 05/13/16 21:20 Urine WBC (Auto) 32.0 /HPF (0.0-6.0) H 05/13/16 21:20 Urine RBC (Auto) 8.0 /HPF (0.0-6.0) 05/13/16 21:20 U Epithel Cells (Auto) < 1.0 /HPF (0-13.0) 05/13/16 21:20 Urine Bacteria (Auto) 3+ /HPF (Negative) 05/13/16 21:20 Hyaline Casts 1 /LPF 05/13/16 21:20 Urine Mucus Few /HPF 05/13/16 21:20
[2016-05-16] MEDS: REMERON PO SCH (21:36)
[2016-05-16] MEDS: NACL 0.45% 1000 ML 1,000 ML IV SCH (23:16)
[2016-05-17] MEDS: ZOSYN/NS 3.375GM/50ML 50 ML IV SCH ×4 (04:42→22:29)
[2016-05-17 08:06] LABS: Hematocrit 33.6 % (35.5-45.6); Mean Corpuscular HGB Conc 33 % (32-34); Mean Corpuscular Hemoglobin 29 pg (28-32); Mean Corpuscular Volume 88 fl (84-94); Platelet Count 267 K/mm3 (140-440); Red Blood Count 3.83 M/mm3 (3.65-5.03); Red Cell Distribution Width 14.2 % (13.2-15.2); White Blood Count 5.3 K/mm3 (4.5-11.0)
[2016-05-17 08:15] LABS: Anion Gap 19 mmol/L; BUN/Creatinine Ratio 8.57; Blood Urea Nitrogen 12 mg/dL (9-20); Calcium 8.9 mg/dL (8.4-10.2); Carbon Dioxide 22 mmol/L (22-30); Chloride 102.3 mmol/L (98-107); Glucose 108 mg/dL (75-100); Potassium 4.3 mmol/L (3.6-5.0); Sodium 139 mmol/L (137-145)
[2016-05-17] MEDS: RisperDAL PO SCH (08:56)
[2016-05-17] MEDS: NACL 0.45% 1000 ML 1,000 ML IV SCH (09:05)
[2016-05-17 10:16] LABS: Anisocytosis 1+; Blastocytes % (Manual) 0 %; Poikilocytosis 1+
[2016-05-17 10:17] LABS: Burr Cells Few; Diff Status Complete; Giant Platelets Rare; Large Platelets Few; Microcytosis 1+; Ovalocytes 1+
[2016-05-17] MEDS: LEVAQUIN 750MG/150ML 150 ML IV SCH (10:56)
--- NOTE | 2016-05-17 18:32 | Progress Note ---
History Interval history: Doing well, no complaints Hospitalist Physical - Constitutional Vitals: Temp Pulse Resp BP Pulse Ox 99 F 83 18 120/74 98 05/17/16 08:00 05/17/16 08:00 05/17/16 08:00 05/17/16 08:00 05/17/16 10:00 General appearance: Present: mild distress Results - Labs CBC & Chem 7: 05/17/16 06:59 05/17/16 06:59 Labs: Laboratory Last Values WBC 5.3 K/mm3 (4.5-11.0) 05/17/16 06:59 RBC 3.83 M/mm3 (3.65-5.03) 05/17/16 06:59 Hgb 11.0 gm/dl (11.8-15.2) L 05/17/16 06:59 Hct 33.6 % (35.5-45.6) L 05/17/16 06:59 MCV 88 fl (84-94) 05/17/16 06:59 MCH 29 pg (28-32) 05/17/16 06:59 MCHC 33 % (32-34) 05/17/16 06:59 RDW 14.2 % (13.2-15.2) 05/17/16 06:59 Plt Count 267 K/mm3 (140-440) 05/17/16 06:59 Lymph % (Auto) 8.1 % (13.4-35.0) L 05/14/16 08:04 Power % (Auto) Client Application Support Engineer 05/17/16 06:59 Eos % (Auto) 0.0 % (0.0-4.3) 05/14/16 08:04 Baso % (Auto) 0.4 % (0.0-1.8) 05/14/16 08:04 Lymph # 1.6 K/mm3 (1.2-5.4) 05/14/16 08:04 [place] # 2.4 K/mm3 (0.0-0.8) H 05/14/16 08:04 Eos # 0.0 K/mm3 (0.0-0.4) 05/14/16 08:04 Baso # 0.1 K/mm3 (0.0-0.1) 05/14/16 08:04 Add Manual Diff Complete 05/17/16 06:59 Total Counted 100 05/17/16 06:59 Seg Neutrophils % 79.4 % (40.0-70.0) H 05/14/16 08:04 Seg Neuts % (Manual) 36.0 % (40.0-70.0) L 05/17/16 06:59 Band Neutrophils % 2.0 % 05/17/16 06:59 Lymphocytes % (Manual) 43.0 % (13.4-35.0) H 05/17/16 06:59 Reactive Lymphs % (Man) 0 % 05/17/16 06:59 Monocytes % (Manual) 13.0 % (0.0-7.3) H 05/17/16 06:59 Eosinophils % (Manual) 5.0 % (0.0-4.3) H 05/17/16 06:59 Basophils % (Manual) 1.0 % (0.0-1.8) 05/17/16 06:59 Metamyelocytes % 0 % 05/17/16 06:59 Myelocytes % 0 % 05/17/16 06:59 Promyelocytes % 0 % 05/17/16 06:59 Blast Cells % 0 % 05/17/16 06:59 Nucleated RBC % Not Reportable 05/17/16 06:59 Seg Neutrophils # 15.5 K/mm3 (1.8-7.7) H 05/14/16 08:04 Seg Neutrophils # Man 1.9 K/mm3 (1.8-7.7) 05/17/16 06:59 Band Neutrophils # 0.1 K/mm3 05/17/16 06:59 Lymphocytes # (Manual) 2.3 K/mm3 (1.2-5.4) 05/17/16 06:59 Abs React Lymphs (Man) 0.0 K/mm3 05/17/16 06:59 Monocytes # (Manual) 0.7 K/mm3 (0.0-0.8) 05/17/16 06:59 Eosinophils # (Manual) 0.3 K/mm3 (0.0-0.4) 05/17/16 06:59 Basophils # (Manual) 0.1 K/mm3 (0.0-0.1) 05/17/16 06:59 Metamyelocytes # 0.0 K/mm3 05/17/16 06:59 Myelocytes # 0.0 K/mm3 05/17/16 06:59 Promyelocytes # 0.0 K/mm3 05/17/16 06:59 Blast Cells # 0.0 K/mm3 05/17/16 06:59 WBC Morphology Not Reportable 05/17/16 06:59 Hypersegmented Neuts Not Reportable 05/17/16 06:59 Hyposegmented Neuts Not Reportable 05/17/16 06:59 Hypogranular Neuts Not Reportable 05/17/16 06:59 Smudge Cells Not Reportable 05/17/16 06:59 Toxic Granulation Not Reportable 05/17/16 06:59 Toxic Vacuolation Not Reportable 05/17/16 06:59 Dohle Bodies Not Reportable 05/17/16 06:59 Pelger-Huet Anomaly Not Reportable 05/17/16 06:59 Stacia Rods Not Reportable 05/17/16 06:59 Platelet Estimate Appears normal 05/17/16 06:59 Clumped Platelets Not Reportable 05/17/16 06:59 Plt Clumps, EDTA Not Reportable 05/17/16 06:59 Large Platelets Few 05/17/16 06:59 Giant Platelets Rare 05/17/16 06:59 Platelet Satelliting Not Reportable 05/17/16 06:59 Plt Morphology Comment Not Reportable 05/17/16 06:59 RBC Morphology Not Reportable 05/17/16 06:59 Dimorphic RBCs Not Reportable 05/17/16 06:59 Polychromasia Not Reportable 05/17/16 06:59 Hypochromasia Not Reportable 05/17/16 06:59 Poikilocytosis 1+ 05/17/16 06:59 Anisocytosis 1+ 05/17/16 06:59 Microcytosis 1+ 05/17/16 06:59 Macrocytosis Not Reportable 05/17/16 06:59 Spherocytes Not Reportable 05/17/16 06:59 Pappenheimer Bodies Not Reportable 05/17/16 06:59 Sickle Cells Not Reportable 05/17/16 06:59 Target Cells Not Reportable 05/17/16 06:59 Tear Drop Cells Not Reportable 05/17/16 06:59 Ovalocytes 1+ 05/17/16 06:59 Helmet Cells Not Reportable 05/17/16 06:59 Anguiano-[place] Bodies Not Reportable 05/17/16 06:59 [place] Rings Not Reportable 05/17/16 06:59 [place] Cells Few 05/17/16 06:59 Bite Cells Not Reportable 05/17/16 06:59 Crenated Cell Not Reportable 05/17/16 06:59 Elliptocytes Not Reportable 05/17/16 06:59 Acanthocytes (Spur) Not Reportable 05/17/16 06:59 Rouleaux Not Reportable 05/17/16 06:59 Hemoglobin C Crystals Not Reportable 05/17/16 06:59 Schistocytes Not Reportable 05/17/16 06:59 Malaria parasites Not Reportable 05/17/16 06:59 Doe Bodies Not Reportable 05/17/16 06:59 Hem Pathologist Commnt No 05/17/16 06:59 Sodium 139 mmol/L (137-145) 05/17/16 06:59 Potassium 4.3 mmol/L (3.6-5.0) 05/17/16 06:59 Chloride 102.3 mmol/L (98-107) 05/17/16 06:59 Carbon Dioxide 22 mmol/L (22-30) 05/17/16 06:59 Anion Gap 19 mmol/L 05/17/16 06:59 BUN 12 mg/dL (9-20) 05/17/16 06:59 Creatinine 1.4 mg/dL (0.8-1.5) 05/17/16 06:59 Estimated GFR > 60 ml/min 05/17/16 06:59 BUN/Creatinine Ratio 8.57 % 05/17/16 06:59 Glucose 108 mg/dL (75-100) H 05/17/16 06:59 POC Glucose 112 (70-105) H 05/17/16 17:42 Lactic Acid 2.2 mmol/L (0.7-2.0) H* 05/14/16 08:04 Calcium 8.9 mg/dL (8.4-10.2) 05/17/16 06:59 Magnesium 2.1 mg/dL (1.7-2.3) 05/14/16 04:23 Total Creatine Kinase 78 units/L (55-170) 05/14/16 04:23 Troponin T < 0.010 ng/mL (0.00-0.029) 05/14/16 04:23 Amylase 27 units/L (27-131) 05/13/16 20:19 Lipase 9 units/L (13-60) L 05/13/16 20:19 Urine Color [place] (Yellow) 05/13/16 21:20 Urine Turbidity Slightly-cloudy (Clear) 05/13/16 21:20 Urine pH 5.0 (5.0-7.0) 05/13/16 21:20 Ur Specific [place] 1.023 (1.003-1.030) 05/13/16 21:20 Urine Protein 100 mg/dl mg/dL (Negative) 05/13/16 21:20 Urine Glucose (UA) Neg mg/dL (Negative) 05/13/16 21:20 Urine Ketones Neg mg/dL (Negative) 05/13/16 21:20 Urine Blood Mod (Negative) 05/13/16 21:20 Urine Nitrite Neg (Negative) 05/13/16 21:20 Urine Bilirubin Neg (Negative) 05/13/16 21:20 Urine Urobilinogen 4.0 mg/dL (<2.0) 05/13/16 21:20 Ur Leukocyte Esterase Mod (Negative) 05/13/16 21:20 Urine WBC (Auto) 32.0 /HPF (0.0-6.0) H 05/13/16 21:20 Urine RBC (Auto) 8.0 /HPF (0.0-6.0) 05/13/16 21:20 U Epithel Cells (Auto) < 1.0 /HPF (0-13.0) 05/13/16 21:20 Urine Bacteria (Auto) 3+ /HPF (Negative) 05/13/16 21:20 Hyaline Casts 1 /LPF 05/13/16 21:20 Urine Mucus Few /HPF 05/13/16 21:20 - Imaging and Cardiology MRI - abdomen: report reviewed (2.3 cm lesion sup pole left kidney - hemorrhagic cyst versus malignancy)
[2016-05-17] MEDS: REMERON PO SCH (22:24)
[2016-05-18] MEDS: NACL 0.45% 1000 ML 1,000 ML IV SCH (03:58)
[2016-05-18] MEDS: ZOSYN/NS 3.375GM/50ML 50 ML IV SCH ×2 (03:58→10:59)
[2016-05-18] MEDS: TYLENOL PO PRN (11:00)
--- NOTE | 2016-05-18 11:21 | Discharge Summary ---
Providers - Providers Date of Admission: 05/14/16 04:09 Date of discharge: 05/18/16 Attending physician: DELROY TORRES Primary care physician: WEDGER Hospitalization Condition: Good Disposition: STILL A PATIENT Exam - Constitutional Vitals: Temp Pulse Resp BP Pulse Ox 98.2 F 81 16 121/84 95 05/18/16 07:00 05/18/16 07:00 05/18/16 07:00 05/18/16 07:00 05/18/16 10:05 Plan Activity: advance as tolerated Diet: low cholesterol, low salt, diabetic Follow up with: PRIMARY CARE, [Primary Care Provider] - 7 Days Prescriptions: Aspirin [Adult Low Dose Aspirin EC] 81 mg PO DAILY #30 tablet. Cyclobenzaprine [Flexeril 10 MG TAB] 10 mg PO TID PRN #90 tablet PRN Reason: Muscle Spasm clonazePAM [Klonopin] 1 mg PO BID #60 tablet Levofloxacin [Levaquin TAB] 750 mg PO QDAY #4 tablet Quetiapine Fumarate [QUEtiapine Fumarate] 300 mg PO QDAY #30 tablet Mirtazapine [Remeron] 45 mg PO DAILY #45 tablet risperiDONE [RisperDAL] 2 mg PO DAILY #15 tablet
[2016-05-18 11:59] VITALS: BP 122/84
[2016-05-18] MEDS: LEVAQUIN 750MG/150ML 150 ML IV SCH (12:04)
--- NOTE | 2016-05-21 09:09 | Query- Renal Failure ---
Karol Cordero Date:_05/21/16 Switcher/CDS:_Marimar/Andrea Roca Phone#: Exercise your independent professional judgment when responding to query. Questions asked do not imply a particular answer is desired or expected. We greatly appreciate your clarification on this issue. Clinical Documentation States: 55 Y/O Male admitted on 05/14/16 with history of HTN, DM, COPD presents with pain in the low back and suprapubic region for the last 3 days associated with nausea and vomiting. Clinical Findings Show: 05/13 05/16 Creat: 1.9 1.4 Please clarify if you mean: Acute Renal Failure with or due to: [ ] Tubular Necrosis [ ] Medullary Necrosis [x ] Vasomotor Nephropathy [ ] Shock Kidney [ ] Tubular Nephrosis [ ] Renal Tubular Stasis [ ] Cortical Necrosis [ ] Acute Renal Failure (unspecified) [ ] Lower Tubular Nephrosis [ ] Other: [ ] Not Applicable Present on Admission: [x ] Yes (Y) [ ] Clinically undeterminable (W) [ ] No (N) Please also document response in your Progress Notes and/or Discharge Summary and indicate if the condition was present on admission. MTDD
== END 2016-05-18 13:28 | disposition home or self-care (01) | DRG 871 ==
LOC: ED 19:17 → 3A 05-14 04:09
PROVIDERS: ADMIT Internal Medicine; ATTEND Internal Medicine
DX: A41.9 Sepsis, unspecified organism (principal); N17.0 Acute kidney failure with tubular necrosis; E11.9 Type 2 diabetes mellitus without complications; J44.9 Chronic obstructive pulmonary disease, unspecified; I10 Essential (primary) hypertension; N13.9 Obstructive and reflux uropathy, unspecified; R32 Unspecified urinary incontinence; Z88.8 Allergy status to other drugs, medicaments and biological substances; Z91.030 Bee allergy status; Z79.82 Long term (current) use of aspirin; Z79.84 Long term (current) use of oral hypoglycemic drugs; Z79.899 Other long term (current) drug therapy; Z98.890 Other specified postprocedural states; Z82.49 Family history of ischemic heart disease and other diseases of the circulatory system
CPT/HCPCS: 36415; 70450; 71010; 74176; 74183; 80048; 81001; 82140; 82150; 82550; 82962; 83690; 83735; 84484; 85007; 85025; 87040; 87076; 87086; 87186; 93005; 93010; 96365; 96375; A9577; J0696; J1956; J2405; J2543; J7030

== ENCOUNTER 2017-05-20 09:48 | Emergency (ER) | payer SELFPAY ==
[2017-05-20] MEDS ORDERED: NACL 0.9% 500 ML 500 ML IV ONE (11:03)
[2017-05-20 11:35] LABS: Basophils % (Auto) 0.4 % (0.0-1.8); Eosinophils % (Auto) 0.5 % (0.0-4.3); Hematocrit 39.1 % (35.5-45.6); Hemoglobin 12.8 gm/dl (11.8-15.2); Lymphocytes # (Auto) 0.6 K/mm3 (1.2-5.4); Lymphocytes % (Auto) 11.1 % (13.4-35.0); Mean Corpuscular HGB Conc 33 % (32-34); Mean Corpuscular Hemoglobin 29 pg (28-32); Mean Corpuscular Volume 90 fl (84-94); Monocytes # (Auto) 0.8 K/mm3 (0.0-0.8); Monocytes % (Auto) 14.2 % (0.0-7.3); Platelet Count 228 K/mm3 (140-440); Red Blood Count 4.36 M/mm3 (3.65-5.03); Red Cell Distribution Width 13.5 % (13.2-15.2)
[2017-05-20 11:44] LABS: INR 1.07 (0.87-1.13)
[2017-05-20 11:53] LABS: Alanine Aminotransferase 16 units/L (7-56); Albumin 3.7 g/dL (3.9-5); BUN/Creatinine Ratio 7; Blood Urea Nitrogen 8 mg/dL (9-20); Calcium 9.1 mg/dL (8.4-10.2); Hemolysis Index 12
[2017-05-20 12:14] LABS: Bilirubin,Urine NEG (Negative); Blood,Urine SM (Negative); Color,Urine Yellow (Yellow); Mucus,Urine 2+ /HPF; Nitrite,Urine NEG (Negative)
--- NOTE | 2017-05-20 12:47 | XRay Report ---
AP chest x-ray. History: Sepsis. Findings: The heart and pulmonary vessels are normal. The lungs are clear. A prominent emphysematous bleb is seen in the right upper lobe, unchanged since previous study. No pleural fluid is seen. Impression: COPD with no acute findings.
--- NOTE | 2017-05-20 13:37 | Emergency Department Report ---
ED Fever HPI - General Chief Complaint: Fever Stated Complaint: FEVER Time Seen by Provider: 05/20/17 11:16 - History of Present Illness Initial Comments: Patient is a 56-year-old male who is presenting with cough, congestion. Patient states he's been feeling ill for approximately 2 days with fever cough that is nonproductive as well as a headache. Patient sent in for evaluation. Patient denies nausea vomiting diarrhea or body aches at this time. ED Review of Systems ROS: Stated complaint: FEVER Other details as noted in HPI Comment: All other systems reviewed and negative ED Past Medical Hx - Past Medical History Previous Medical History?: Yes Hx Hypertension: Yes (2YRS) Hx Diabetes: Yes (2YRS) Hx COPD: Yes (2YRS) - Surgical History Past Surgical History?: Yes Hx Breast Surgery: (RITA REMOVAL OF FLUID) - Social History Smoking Status: Current Every Day Smoker Substance Use Type: Cocaine - Medications Home Medications: Home Medications Medication Instructions Recorded Confirmed Last Taken Type Clindamycin Phosphate [Cleocin T 60 ml TP DAILY 08/29/15 05/14/16 1 Day Ago History 1% TOPICAL LOTION] ~05/13/16 60 Metformin HCl [Glucophage] 500 mg PO BID 08/29/15 05/14/16 1 Day Ago History ~05/13/16 500 Aspirin [Adult Low Dose Aspirin EC] 81 mg PO DAILY #30 tablet. 05/18/16 Unknown Rx Cyclobenzaprine [Flexeril 10 MG 10 mg PO TID PRN #90 tablet 05/18/16 Unknown Rx TAB] Levofloxacin [Levaquin TAB] 750 mg PO QDAY #4 tablet 05/18/16 Unknown Rx Mirtazapine [Remeron] 45 mg PO DAILY #45 tablet 05/18/16 Unknown Rx Quetiapine Fumarate [QUEtiapine 300 mg PO QDAY #30 tablet 05/18/16 Unknown Rx Fumarate] clonazePAM [Klonopin] 1 mg PO BID #60 tablet 05/18/16 Unknown Rx risperiDONE [RisperDAL] 2 mg PO DAILY #15 tablet 05/18/16 Unknown Rx ALBUTEROL Inhaler [ProAir HFA 2 puff IH QID PRN #1 inhalation 05/20/17 Unknown Rx Inhaler] Fluticasone [Flonase] 1 spray NS QDAY #1 bottle 05/20/17 Unknown Rx predniSONE [Deltasone] 20 mg PO DAILY #5 tablet 05/20/17 Unknown Rx ED Physical Exam - General Limitations: No Limitations General appearance: alert, in no apparent distress - Head Head exam: Present: atraumatic, normocephalic - Eye Eye exam: Present: normal appearance - ENT ENT exam: Present: mucous membranes moist - Neck Neck exam: Present: normal inspection - Respiratory Respiratory exam: Present: normal lung sounds bilaterally. Absent: respiratory distress - Cardiovascular Cardiovascular Exam: Present: regular rate, normal rhythm. Absent: systolic murmur, diastolic murmur, rubs, gallop - GI/Abdominal GI/Abdominal exam: Present: soft, normal bowel sounds - Rectal Rectal exam: Present: deferred - Extremities Exam Extremities exam: Present: normal inspection - Back Exam Back exam: Present: normal inspection - Neurological Exam Neurological exam: Present: alert, oriented X3 - Psychiatric Psychiatric exam: Present: normal affect, normal mood - Skin Skin exam: Present: warm, dry, intact, normal color. Absent: rash ED Course Vital Signs 05/20/17 05/20/17 05/20/17 10:53 11:00 11:15 Temperature 99.8 F H Pulse Rate 84 93 H Respiratory 23 16 Rate Blood Pressure 102/67 94/66 Blood Pressure [Right] O2 Sat by Pulse 95 97 Oximetry 05/20/17 05/20/17 05/20/17 11:30 11:39 12:38 Temperature 98.7 F Pulse Rate 85 89 Respiratory 24 18 18 Rate Blood Pressure 103/67 Blood Pressure 121/68 [Right] O2 Sat by Pulse 99 99 98 Oximetry ED Medical Decision Making - Lab Data Result diagrams: 05/20/17 11:11 05/20/17 11:11 Lab Results 05/20/17 05/20/17 05/20/17 Range/Units 11:11 11:11 11:11 WBC 5.6 (4.5-11.0) K/mm3 RBC 4.36 (3.65-5.03) M/mm3 Hgb 12.8 (11.8-15.2) gm/dl Hct 39.1 (35.5-45.6) % MCV 90 (84-94) fl MCH 29 (28-32) pg MCHC 33 (32-34) % RDW 13.5 (13.2-15.2) % Plt Count 228 (140-440) K/mm3 Lymph % (Auto) 11.1 L (13.4-35.0) % [place] % (Auto) 14.2 H (0.0-7.3) % Eos % (Auto) 0.5 (0.0-4.3) % Baso % (Auto) 0.4 (0.0-1.8) % Lymph # 0.6 L (1.2-5.4) K/mm3 [place] # 0.8 (0.0-0.8) K/mm3 Eos # 0.0 (0.0-0.4) K/mm3 Baso # 0.0 (0.0-0.1) K/mm3 Seg Neutrophils % 73.8 H (40.0-70.0) % Seg Neutrophils # 4.1 (1.8-7.7) K/mm3 PT 14.5 (12.2-14.9) Sec. INR 1.07 (0.87-1.13) VBG pH (7.320-7.420) Sodium 137 (137-145) mmol/L Potassium 4.2 (3.6-5.0) mmol/L Chloride 96.3 L (98-107) mmol/L Carbon Dioxide 27 (22-30) mmol/L Anion Gap 18 mmol/L BUN 8 L (9-20) mg/dL Creatinine 1.2 (0.8-1.5) mg/dL Estimated GFR > 60 ml/min BUN/Creatinine Ratio 7 % Glucose 95 (75-100) mg/dL Lactic Acid (0.7-2.0) mmol/L Calcium 9.1 (8.4-10.2) mg/dL Total Bilirubin 0.50 (0.1-1.2) mg/dL AST 19 (5-40) units/L ALT 16 (7-56) units/L Alkaline Phosphatase 80 (35-129) units/L Total Protein 7.0 (6.3-8.2) g/dL Albumin 3.7 L (3.9-5) g/dL Albumin/Globulin Ratio 1.1 % Urine Color (Yellow) Urine Turbidity (Clear) Urine pH (5.0-7.0) Ur Specific [place] (1.003-1.030) Urine Protein (Negative) mg/dL Urine Glucose (UA) (Negative) mg/dL Urine Ketones (Negative) mg/dL Urine Blood (Negative) Urine Nitrite (Negative) Urine Bilirubin (Negative) Urine Urobilinogen (<2.0) mg/dL Ur Leukocyte Esterase (Negative) Urine WBC (Auto) (0.0-6.0) /HPF Urine RBC (Auto) (0.0-6.0) /HPF Urine Mucus /HPF 05/20/17 05/20/17 05/20/17 Range/Units 11:11 11:11 11:44 WBC (4.5-11.0) K/mm3 RBC (3.65-5.03) M/mm3 Hgb (11.8-15.2) gm/dl Hct (35.5-45.6) % MCV (84-94) fl MCH (28-32) pg MCHC (32-34) % RDW (13.2-15.2) % Plt Count (140-440) K/mm3 Lymph % (Auto) (13.4-35.0) % [place] % (Auto) (0.0-7.3) % Eos % (Auto) (0.0-4.3) % Baso % (Auto) (0.0-1.8) % Lymph # (1.2-5.4) K/mm3 [place] # (0.0-0.8) K/mm3 Eos # (0.0-0.4) K/mm3 Baso # (0.0-0.1) K/mm3 Seg Neutrophils % (40.0-70.0) % Seg Neutrophils # (1.8-7.7) K/mm3 PT (12.2-14.9) Sec. INR (0.87-1.13) VBG pH 7.361 (7.320-7.420) Sodium (137-145) mmol/L Potassium (3.6-5.0) mmol/L Chloride (98-107) mmol/L Carbon Dioxide (22-30) mmol/L Anion Gap mmol/L BUN (9-20) mg/dL Creatinine (0.8-1.5) mg/dL Estimated GFR ml/min BUN/Creatinine Ratio % Glucose (75-100) mg/dL Lactic Acid 1.30 (0.7-2.0) mmol/L Calcium (8.4-10.2) mg/dL Total Bilirubin (0.1-1.2) mg/dL AST (5-40) units/L ALT (7-56) units/L Alkaline Phosphatase (35-129) units/L Total Protein (6.3-8.2) g/dL Albumin (3.9-5) g/dL Albumin/Globulin Ratio % Urine Color Yellow (Yellow) Urine Turbidity Clear (Clear) Urine pH 6.0 (5.0-7.0) Ur Specific Freer 1.026 (1.003-1.030) Urine Protein 30 mg/dl (Negative) mg/dL Urine Glucose (UA) Neg (Negative) mg/dL Urine Ketones 20 (Negative) mg/dL Urine Blood Sm (Negative) Urine Nitrite Neg (Negative) Urine Bilirubin Neg (Negative) Urine Urobilinogen 4.0 (<2.0) mg/dL Ur Leukocyte Esterase Neg (Negative) Urine WBC (Auto) 1.0 (0.0-6.0) /HPF Urine RBC (Auto) 21.0 (0.0-6.0) /HPF Urine Mucus 2+ /HPF - Radiology Data Radiology results: report reviewed Chest x-ray within normal limits - Medical Decision Making Patient is a 56-year-old [place] male whose presenting with cough, congestion. Patient was flu A+ and will be discharged home with supportive care Critical care attestation.: If time is entered above; I have spent that time in minutes in the direct care of this critically ill patient, excluding procedure time. ED Disposition Clinical Impression: Influenza A Disposition: [id number] TO HOME OR SELFCARE Is pt being admited?: No Does the pt Need Aspirin: No Condition: Fair Instructions: Influenza (ED) Prescriptions: ALBUTEROL Inhaler [ProAir HFA Inhaler] 2 puff IH QID PRN #1 inhalation PRN Reason: Shortness Of Breath Fluticasone [Flonase] 1 spray NS QDAY #1 bottle predniSONE [Deltasone] 20 mg PO DAILY #5 tablet Referrals: BRANDY LOCKE MD [Primary Care Provider] - 3-5 Days
[2017-05-20 14:29] VITALS: BP 126/80
== END 2017-05-20 14:29 | disposition home or self-care (01) ==
LOC: ED 09:48
DX: J10.1 Influenza due to other identified influenza virus with other respiratory manifestations (principal); I10 Essential (primary) hypertension; E11.9 Type 2 diabetes mellitus without complications; J44.9 Chronic obstructive pulmonary disease, unspecified; F17.200 Nicotine dependence, unspecified, uncomplicated; F14.10 Cocaine abuse, uncomplicated; Z98.890 Other specified postprocedural states; Z88.8 Allergy status to other drugs, medicaments and biological substances; Z91.030 Bee allergy status
CPT/HCPCS: 36415; 71045; 80053; 81001; 82140; 82805; 85025; 85610; 87040; 87086; 87400

== ENCOUNTER 2021-01-21 15:43 | Emergency (ER) | payer OTHER ==
[2021-01-21 17:27] VITALS: BP 147/87
--- NOTE | 2021-01-21 17:45 | Emergency Department Report ---
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 He describes it as a tension headache. It was gradual onset. It is diffuse. It does not throb. It is not unilateral. It was not abrupt onset. It was not maximum intensity at the time of onset. He has no fever or stiff neck associated with this. He states that he has a history of tension headaches and this is the same. Patient also states that he had an episode where he had trouble breathing today and felt anxious. He felt as though he was having a panic attack. There is no history of recent travel or trauma. He is not having a panic attack at this time. He still having a headache. He did not take [id number] medication for any of his symptoms. He was very nervous and decided to come here for evaluation. He has never had panic attacks before. Allergies/Adverse Reactions: Allergies lisinopril Allergy (Verified 01/21/21 17:27) Anaphylaxis venom-honey bee [bee venom (honey bee)] Allergy (Verified 01/21/21 17:27) Anaphylaxis Home Medications: Ambulatory Orders Clindamycin Phosphate [Cleocin T 1% TOPICAL LOTION] 60 ml TP DAILY 08/29/15 Metformin HCl [Glucophage] 500 mg PO BID 08/29/15 Aspirin [Adult Low Dose Aspirin EC] 81 mg PO DAILY #30 tablet. 05/18/16 Cyclobenzaprine [Flexeril 10 MG TAB] 10 mg PO TID PRN #90 tablet 05/18/16 Mirtazapine [Remeron] 45 mg PO DAILY #45 tablet 05/18/16 Quetiapine Fumarate [QUEtiapine Fumarate] 300 mg PO QDAY #30 tablet 05/18/16 clonazePAM [Klonopin] 1 mg PO BID #60 tablet 05/18/16 levoFLOXacin [Levaquin TAB] 750 mg PO QDAY #4 tablet 05/18/16 risperiDONE [RisperDAL] 2 mg PO DAILY #15 tablet 05/18/16 Albuterol Mdi (or & Nicu Only) [ProAir HFA Inhaler] 2 puff IH QID PRN #1 inhalation 05/20/17 Fluticasone [Flonase] 1 spray NS QDAY #1 bottle 05/20/17 predniSONE [Deltasone] 20 mg PO DAILY #5 tablet 05/20/17 Ibuprofen [Motrin] 600 mg PO Q8H PRN #20 tablet 01/21/21 diphenhydrAMINE [Benadryl CAP] 25 mg PO Q6HR PRN #20 capsule 01/21/21 ED Review of Systems ROS: Stated complaint: HAEACHE/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 PAIN/MILLER Other details as noted in HPI Comment: All other systems reviewed and negative Constitutional: denies: fever Eyes: denies: eye pain ENT: denies: throat pain Respiratory: denies: cough Cardiovascular: denies: chest pain Endocrine: denies: unexplained weight loss Gastrointestinal: denies: nausea, vomiting Genitourinary: denies: dysuria Musculoskeletal: denies: back pain Skin: denies: rash Neurological: as per HPI, headache Psychiatric: anxiety Hematological/Lymphatic: denies: easy bruising ED Past Medical Hx - Past Medical History Previous Medical History?: No Hx Hypertension: Yes (2YRS) Hx Diabetes: Yes (2YRS) Hx COPD: Yes (2YRS) - Surgical History Hx Breast Surgery: (RITA REMOVAL OF FLUID) - Family History Family history: hypertension - Social History Smoking Status: Current Every Day Smoker Substance Use Type: None - Medications Home Medications: Home Medications Medication Instructions Recorded Confirmed Last Taken Type Clindamycin Phosphate [Cleocin T 60 ml TP DAILY 08/29/15 05/14/16 1 Day Ago History 1% TOPICAL LOTION] ~05/13/16 60 Metformin HCl [Glucophage] 500 mg PO BID 08/29/15 05/14/16 1 Day Ago History ~05/13/16 500 Aspirin [Adult Low Dose Aspirin EC] 81 mg PO DAILY #30 tablet. 05/18/16 Unknown Rx Cyclobenzaprine [Flexeril 10 MG 10 mg PO TID PRN #90 tablet 05/18/16 Unknown Rx TAB] Mirtazapine [Remeron] 45 mg PO DAILY #45 tablet 05/18/16 Unknown Rx Quetiapine Fumarate [QUEtiapine 300 mg PO QDAY #30 tablet 05/18/16 Unknown Rx Fumarate] clonazePAM [Klonopin] 1 mg PO BID #60 tablet 05/18/16 Unknown Rx levoFLOXacin [Levaquin TAB] 750 mg PO QDAY #4 tablet 05/18/16 Unknown Rx risperiDONE [RisperDAL] 2 mg PO DAILY #15 tablet 05/18/16 Unknown Rx Albuterol Mdi (or & Nicu Only) 2 puff IH QID PRN #1 inhalation 05/20/17 Unknown Rx [ProAir HFA Inhaler] Fluticasone [Flonase] 1 spray NS QDAY #1 bottle 05/20/17 Unknown Rx predniSONE [Deltasone] 20 mg PO DAILY #5 tablet 05/20/17 Unknown Rx Ibuprofen [Motrin] 600 mg PO Q8H PRN #20 tablet 01/21/21 Unknown Rx diphenhydrAMINE [Benadryl CAP] 25 mg PO Q6HR PRN #20 capsule 01/21/21 Unknown Rx ED Physical Exam - General Limitations: No Limitations General appearance: alert, in no apparent distress, anxious - Head Head exam: Present: atraumatic, normocephalic, normal inspection - Eye Eye exam: Present: normal appearance, EOMI. Absent: scleral icterus - ENT ENT exam: Present: normal exam, normal orophraynx, mucous membranes moist - Neck Neck exam: Present: normal inspection, full ROM. Absent: meningismus - Respiratory Respiratory exam: Present: normal lung sounds bilaterally. Absent: respiratory distress - Cardiovascular Cardiovascular Exam: Present: regular rate, normal rhythm - GI/Abdominal GI/Abdominal exam: Present: soft. Absent: tenderness - Extremities Exam Extremities exam: Present: normal capillary refill. Absent: pedal edema - Back Exam Back exam: Absent: CVA tenderness (R), CVA tenderness (L) - Neurological Exam Neurological exam: Present: alert, oriented X3, normal gait. Absent: motor sensory deficit - Psychiatric Psychiatric exam: Present: normal affect, normal mood - Skin Skin exam: Present: warm, dry ED Course Vital Signs 01/21/21 01/21/21 17:16 17:22 Temperature 98.0 F 98.1 F Pulse Rate 90 80 Respiratory 18 18 Rate Blood Pressure 147/87 Blood Pressure 142/98 [Left] O2 Sat by Pulse 100 100 Oximetry - Reevaluation(s) Reevaluation #1: 01/21/21 17:45 Patient was seen as above. He was discharged and referred. ED Medical Decision Making - Medical Decision Making Patient presents with a gradual onset of a tension headache. He has had these before. It was not thunderclap in nature, maximum intensity at the onset. I do not believe this represents subarachnoid hemorrhage or sentinel bleed. He has no fever or meningismus. I am not concerned for meningitis. There is no trauma to suggest subdural or epidural hematomas. Certainly, it would be unlikely to be carbon monoxide. He has no respiratory symptoms or GI symptoms to suggest coronavirus. Patient did report having some anxiety. He is not anxious now. He was instructed to use Benadryl [id number]. Critical care attestation.: If time is entered above; I have spent that time in minutes in the direct care of this critically ill patient, excluding procedure time. ED Disposition Clinical Impression: Anxiety attack Acute headache Qualifiers: Headache type: tension-type Intractability: not intractable Qualified Code(s): G44.209 - Tension-type headache, unspecified, not intractable Disposition: 01 HOME / SELF CARE / HOMELESS Is pt being admited?: No Does the pt Need Aspirin: No Condition: Stable Instructions: Panic Attack, [id number], Form - Headache Record, General Headache Without Cause Additional Instructions: Drink plenty water. Return for problems. Follow-up with your regular doctor. Continue home medications. Prescriptions: diphenhydrAMINE [Benadryl CAP] 25 mg PO Q6HR PRN #20 capsule PRN Reason: Anxiety Ibuprofen [Motrin] 600 mg PO Q8H PRN #20 tablet PRN Reason: Pain
== END 2021-01-21 18:00 | disposition home or self-care (01) ==
LOC: ED 15:43
DX: F41.8 Other specified anxiety disorders (principal); G44.89 Other headache syndrome; I10 Essential (primary) hypertension; E11.8 Type 2 diabetes mellitus with unspecified complications; F17.200 Nicotine dependence, unspecified, uncomplicated
CPT/HCPCS: 99281; 99282